=== PATIENT | female | born 1955 | race Caucasian/White ===

== ENCOUNTER 2019-05-11 07:48 | Outpatient (CLI) | payer MEDICARE, OTHER, SELFPAY ==
--- NOTE | 2019-05-11 08:26 | ECHO_ITS ---
Patient Info Name: Beatriz Rosa Age: 64 years : 1955 Gender: Female Ht: 62 in Wt: 170 lbs BSA: 1.87 m2 HR: 67 bpm BP: 129 / 83 mmHg Technical Quality: Good Exam Date: 05/11/2019 8:38 AM Exam Location: [facility] Patient Status: Outpatient Admit Date: 05/11/2019 Staff Ordering Physician: Marcelo Vickers PA-C Machine I Trimmer: Beka Arguello RDCS, RT Attending Provider: Marcelo Vickers PA-C Referring Physician: Alee STOVER; Exam Type: CA echo doppler color flow Study Info Indications R06.02 - Shortness of breath Complete two-dimensional, color flow and Doppler transthoracic echocardiogram is performed. Summary 1. Left ventricular chamber dimension is normal. 2. Left ventricular systolic function is normal, estimated at 60-65%. 3. The left ventricular diastolic function is normal. 4. E/e' 8 is minimally elevated. 5. Global longitudinal strain is normal at -18.6%. 6. Left atrial chamber dimension is mildly enlarged. 7. There is mild aortic valve sclerosis. 8. There is trace mitral valve regurgitation. 9. There is trace pulmonic regurgitation. Left Ventricle E/e' 8 is minimally elevated. Global longitudinal strain is normal at -18.6%. Left ventricular chamber dimension is normal. Left ventricular systolic function is normal, estimated at 60-65%. The left ventricular diastolic function is normal. Right Ventricle Right ventricular chamber dimension is normal. Right ventricular systolic function is normal. Left Atria Left atrial chamber dimension is mildly enlarged. Right Atria Right atrial chamber dimension is normal. Aortic Valve The aortic valve is trileaflet. There is mild aortic valve sclerosis. There is no aortic valve stenosis. There is no aortic valve regurgitation. Pulmonic Valve There is trace pulmonic regurgitation. Mitral Valve There is no mitral valve stenosis. There is trace mitral valve regurgitation. Tricuspid Valve There is no tricuspid valve regurgitation. Pericardium/Pleural There is no pericardial effusion. Inferior Vena Cava Normal inferior vena cava with >50% collapse upon inspiration consistent with normal right atrial pressure, 5 mmHg. Aorta The aortic root size at the sinus of Valsalva is normal. Left Ventricular Outflow Tract Name Value Normal LVOT 2D LVOT Diameter 1.9 cm LVOT Doppler LVOT Peak Gradient 4 mmHg LVOT Mean Gradient 2 mmHg LVOT VTI 22 cm LVOT VTI/AV VTI Ratio 0.8 LVOT Stroke Volume 60 ml LVOT CO 4.0 l/min LVOT CI 2.1 l/min/m2 Pulmonic Valve Name Value Normal PV Doppler PV Peak Gradient 3 mmHg Mitral Valve
== END 2019-05-11 07:49 | disposition home or self-care (01) ==
PROVIDERS: PCP Family Medicine; Visit Provider Physician Assistant
DX: R06.02 Shortness of breath (principal); I08.3 Combined rheumatic disorders of mitral, aortic and tricuspid valves
CPT/HCPCS: 93306

== ENCOUNTER 2019-05-25 13:15 | Outpatient (CLI) | payer MEDICARE, OTHER, SELFPAY ==
--- NOTE | ~2019-05-25 | XR_ITS ---
EXAMINATION: XR chest 2V DATE: 05/25/2019 13:43 INDICATION: Shortness of breath. TECHNIQUE: Frontal and lateral views of the chest were obtained. COMPARISON: Chest single view 09/27/2007 FINDINGS: The chest demonstrates clear lungs without pneumonia, pleural effusion, or pneumothorax. Th e heart size is normal. IMPRESSION: 1. No acute cardiopulmonary disease. Reviewed, dictated and finalized at location A. OWCASE FOLDER
== END 2019-05-25 13:16 | disposition home or self-care (01) ==
LOC: ANHIMG 13:23
PROVIDERS: PCP Family Medicine; Visit Provider Physician Assistant
DX: R06.02 Shortness of breath (principal)
CPT/HCPCS: 71046

== ENCOUNTER 2019-09-12 15:00 | Outpatient (CLI) | payer MEDICARE, OTHER, SELFPAY ==
--- NOTE | ~2019-09-12 | DEXA_ITS ---
Bone Density Report Name: Beatriz Rosa Age: 64 Sex: Female Ethnicity: White Date of : 1955 Indication: postmenopausal; height loss; prior fracture; Referring Provider: Marcelo Vickers Study: Bone densitometry was performed. Exam Date: September 12, 2019 Accession number: [id number] Bone Density: Region BMD T-score Z-score Classification AP Spine (L1, L4) 1.120 0.8 2.5 Normal Femoral Neck (Left) 0.727 -1.1 0.4 Osteopenia Total Hip (Left) 0.869 -0.6 0.7 Normal Total Hip Bilateral Avg 0.873 -0.6 0.7 Normal Femoral Neck (Right) 0.768 -0.7 0.8 Normal Total Hip (Right) 0.875 -0.6 0.7 Normal World Health Organization criteria for BMD impression classify patients as: Normal (T-score at or above -1.0), Osteopenia (T-score between -1.0 and -2.5), or Osteoporosis (T-score at or below -2.5). 10-year Fracture Risk(1): Major Osteoporotic Fracture 13% Hip Fracture 1.0% Reported Risk Factors: [place] (), Neck BMD=0.727, BMI=32.0, previous fracture (1) FRAX(R) Version 3.08. Fracture probability calculated for an untreated patient. Fracture probability may be lower if the patient has received treatment. Previous Exams: Region Exam Age BMD T-score BMD Change BMD Change Date g/cm2 vs Baseline vs Previous AP Spine(L1, L4) 09/12/2019 64 1.120 0.8 -0.030(-2.6%)# 0.020(1.9%) 02/09/2017 61 1.099 0.6 -0.050(-4.4%)# 0.064(6.2%)* 08/22/2014 59 1.035 0.0 -0.115(-10.0%) -0.115(-10.0%) 04/14/2008 53 1.150 1.0 Total Hip(Left) 09/12/2019 64 0.869 -0.6 -0.132(-13.2%) -0.092(-9.6%)* 02/09/2017 61 0.962 0.2 -0.040(-4.0%)# 0.002(0.2%) 08/22/2014 59 0.960 0.1 -0.042(-4.2%)# -0.042(-4.2%)# 04/14/2008 53 1.002 0.5 Total Hip(Right) 09/12/2019 64 0.875 -0.6 -0.169(-16.2%) -0.057(-6.1%)* 02/09/2017 61 0.932 -0.1 -0.112(-10.7%) -0.035(-3.6%)* 08/22/2014 59 0.967 0.2 -0.077(-7.4%)# -0.077(-7.4%)# 04/14/2008 53 1.043 0.8 *Denotes significance at 95% confidence level, LSC for AP Spine = 0.022 g/cm2, LSC for Total Hip = 0.027 g/cm2 Clinical Information Provided by Patient: Has had a low trauma fracture Has used the following medications: Vitamin D Patient maximum height was 62 Menopause Age: 49 Drinks caffeinated beverages Onset of menses at age 11 Number of children 2 Impression: The patient has low bone mass, based on the Left Femoral Neck T-score. The patient has an estim
--- NOTE | ~2019-09-12 | MM_ITS ---
EXAMINATION: MM screening олег BI w noemi HISTORY: Screening mammogram TECHNIQUE: Craniocaudal and mediolateral oblique 3-D tomosynthesis images were obtained and synthetic 2-D images were generated. CAD analysis was submitted and interpreted. COMPARISON: 03/23/2018, 02/09/2017, 08/22/2014 bilateral digital screening mammogram examinations BREAST PARENCHYMAL COMPOSITION: There are scattered areas of fibroglandular density. FINDINGS: There is no evidence of suspicious mass, calcification, or architectural distortion to sugg est malignancy in either breast. There has been no suspicious interval change. IMPRESSION: 1. No mammographic evidence of malignancy. 2. Recommend routine screening mammography in one year. BI-RADS Category 1: Negative Reviewed, dictated and finalized at location A.
== END 2019-09-12 15:01 | disposition home or self-care (01) ==
LOC: ANHIMG 15:07
PROVIDERS: PCP Family Medicine; Visit Provider Physician Assistant
DX: Z78.0 Asymptomatic menopausal state (principal); Z12.31 Encounter for screening mammogram for malignant neoplasm of breast; M85.862 Other specified disorders of bone density and structure, left lower leg
CPT/HCPCS: 77063; 77067; 77080

== ENCOUNTER 2020-02-19 00:13 | Outpatient (CLI) | payer MEDICARE, OTHER, SELFPAY ==
[2020-02-19 20:45] LABS: SARS-CoV-2 RNA PCR Negative
== END 2020-02-19 00:14 | disposition home or self-care (01) ==
LOC: ANHCOVIDDT 00:14
PROVIDERS: PCP Family Medicine; Visit Provider Internal Medicine Gastroenterology
DX: Z01.818 Encounter for other preprocedural examination (principal); Z20.828 Contact with and (suspected) exposure to other viral communicable diseases
CPT/HCPCS: 87635; C9803; U0003

== ENCOUNTER 2020-02-22 01:05 | Day surgery (SDC) | payer MEDICARE, OTHER, SELFPAY ==
[2020-02-14 13:42] VITALS: BMI 33.5
[2020-02-22 15:25] VITALS: BP 117/54; PULSE 83; RESP 16; TEMP 37.2; O2SAT 96
[2020-02-22] MEDS: LACTATED RINGERS 1,000 ML 150 ML IV CONT (15:29)
--- NOTE | 2020-02-22 15:43 | WPDANESEPPF ---
Anes - Initial Pre Proc Eval Procedure: Operation Date: 02/22/20 12:00 Proposed Procedures p Screening Colonoscopy - Noe Wolf MD Date/Time: 02/22/20 15:43 Surgeon: Noe Wolf MD Pre Op Diagnosis: Neoplasm Screening Patient Data Age: 64 Gender: F Height: 5 ft Weight: 76.9 kg Last Vital Signs Temp 98.9 F 02/22/20 15:25 Pulse 83 02/22/20 15:25 Resp 16 02/22/20 15:25 BP 117/54 L 02/22/20 15:25 Pulse Ox 96 02/22/20 15:25 Allergies Allergy/AdvReac Type Severity Reaction Status Date / Time doxycycline Allergy Intermediate Other Verified 02/22/20 15:24 tetracycline AdvReac Intermediate PEELING OF Verified 02/22/20 15:24 SKIN aspirin AdvReac Unknown upset Verified 02/22/20 15:24 stomach Home Medications Medication Instructions Recorded Confirmed Type fluticasone propionate 50 1 spray INTRANASAL DAILY #15.8 ml 01/25/20 02/22/20 Rx mcg/actuation nasal spray,suspension Patient hx anesthesia problems: none Family hx anesthesia problems: none PMFSH Past Medical History Medical History (Updated 04/25/19 @ 11:33 by Gavi Mas CMA) Broken ankle Obstructive sleep apnea Torn ligament Surgical History Surgical History (Updated 04/25/19 @ 11:33 by Gavi Mas CMA) H/O section Hx of breast reduction, elective Family History Family History Father Diabetes mellitus, Onset Age: 47 Hypertension, Onset Age: 47 Grandparent Diabetes mellitus Mother Diabetes mellitus Hypertension Sibling Hypertension Social History Social History (Updated 04/25/19 @ 11:33 by Gavi Mas CMA) Years smoked: 3 Smoking status: Light tobacco smoker Tobacco type: cigarettes Alcohol intake: current Drinks per week: 1 Substance use: never Substance use type: does not use Spiritual care concerns: No Anes - Eval Final PreProcedure Day of Procedure 02/22/20 15:43 Patient weight: overweight Heart: regular rate and rhythm Lungs: clear to auscultation Airway: Mallampati scale class II Neurological: alert and oriented Last oral intake: >/= 8 hours ASA classification: II Emergent: no Anesthetic plan: proceed Anesthesia type and monitoring: general GIVS and standard monitoring Informed Consent: The patient's anesthetic plan and its attendant risks and benefits were discussed with the patient/family/POA. Questions were solicited and answers provided to the satisfaction of the patient/family/POA.
--- NOTE | 2020-02-22 16:36 | PM.HPGS ---
History of Present Illness History of Present Illness Consent: Risks, benefits, and alternatives have been discussed and questions answered. Patient agrees to proceed with procedure. Chief complaint: Neoplasm Screening Narrative: Beatriz Rosa is a 64 year old female here for screening colonoscopy, last one 10 years ago. Review of Systems Constitutional: Constitutional: Denies headache(s) and Denies weakness Eyes: Eyes: Denies blurry vision ENT: Reports Normal hearing present, Denies headache(s) and Denies neck pain Cardiovascular: Cardiovascular: Denies chest pain and Denies dyspnea Respiratory: Respiratory: Denies dyspnea Gastrointestinal: Gastrointestinal: Reports no additional gastrointestinal complaints Genitourinary: Genitourinary: Denies dysuria Musculoskeletal: Musculoskeletal: Denies neck pain Integumentary/Breasts: Skin/Breast: Denies dry skin Neurologic: Reports Normal hearing present, Denies headache(s) and Denies weakness Psychiatric: Psychiatric: Denies anxiety Endocrine: Endocrine: Denies change in body appearance Hematologic/Lymphatic: Hematologic/Lymphatic: Denies easy bleeding Allergic/Immunologic: Allergic/Immunologic: Denies urticaria PMFSH Past Medical History Medical History (Updated 02/22/20 @ 16:36 by Noe Wolf MD) Broken ankle Colon cancer screening Obstructive sleep apnea Torn ligament Surgical History Surgical History (Updated 04/25/19 @ 11:33 by Gavi Mas [facility]) H/O section Hx of breast reduction, elective Family History Family History Father Diabetes mellitus, Onset Age: 47 Hypertension, Onset Age: 47 Grandparent Diabetes mellitus Mother Diabetes mellitus Hypertension Sibling Hypertension Social History Social History (Updated 04/25/19 @ 11:33 by Gavi Mas [facility]) Years smoked: 3 Smoking status: Light tobacco smoker Tobacco type: cigarettes Alcohol intake: current Drinks per week: 1 Substance use: never Substance use type: does not use Spiritual care concerns: No Meds Home Medications and Allergies Home Medications Medication Instructions Recorded Confirmed Type fluticasone propionate 50 1 spray INTRANASAL DAILY #15.8 ml 01/25/20 02/22/20 Rx mcg/actuation nasal spray,suspension Allergies Allergy/AdvReac Type Severity Reaction Status Date / Time doxycycline Allergy Intermediate Other Verified 02/22/20 15:24 tetracycline AdvReac Intermediate PEELING OF Verified 02/22/20 15:24 SKIN aspirin AdvReac Unknown upset Verified 02/22/20 15:24 stomach Vital Signs Vital Signs - 24 hr 02/22/20 15:25 Temperature 98.9 F Pulse Rate 83 Respiratory Rate 16 Blood Pressure 117/54 L Pulse Oximetry 96 Exam Const: General: comfortable and no acute distress HENMT: General nose exam: Normal nares present Eyes: General: appearance normal, both eyes and all related structures Neck: Neck: no JVD Resp: Auscultation: clear to auscultation bilaterally Cardio: Rate: regular rate Rhythm: regular rhythm GI: Inspection: non-distended GI Palp: Yes Soft to palpation Skin: General skin exam: normal color Neuro: General: gait normal Speech: normal speech Extrem: General: normal to inspection Psych: Mental Status: mental status grossly normal Assessment and Plan Assessment and plan (1) Colon cancer screening: Code(s): Z12.11 - Encounter for screening for malignant neoplasm of colon Status: Acute Assessment and Plan: will proceed with colonoscopy
[2020-02-22 16:59] VITALS: BP 92/50; PULSE 81; RESP 23; O2SAT 98
[2020-02-22 17:09] VITALS: BP 94/65; PULSE 80; RESP 20; O2SAT 97
[2020-02-22 17:19] VITALS: BP 99/71; PULSE 68; RESP 19; O2SAT 100
== END 2020-02-22 17:30 | disposition home or self-care (01) ==
PROVIDERS: PCP Family Medicine; Visit Provider Internal Medicine Gastroenterology
PROC: 0DJD8ZZ Inspection of Lower Intestinal Tract, Via Natural or Artificial Opening Endoscopic (ICD-10-PCS; CPT 45378; principal; 2020-02-22 12:00)
DX: Z12.11 Encounter for screening for malignant neoplasm of colon (principal); K63.5 Polyp of colon; K57.30 Diverticulosis of large intestine without perforation or abscess without bleeding; K64.8 Other hemorrhoids; G47.33 Obstructive sleep apnea (adult) (pediatric); F17.210 Nicotine dependence, cigarettes, uncomplicated
CPT/HCPCS: 45385; 88305; J2704; J7120

== ENCOUNTER 2021-01-21 12:14 | Emergency (ER) | payer MEDICARE, SELFPAY ==
--- NOTE | 2021-01-21 12:19 | ED.URI ---
HPI - URI/Sore Throat General Chief Complaint: Upper Respiratory Infection Stated Complaint: COLD SYMPTOMS Time Seen by Provider: 01/21/21 12:19 Source: patient and RN notes reviewed History of Present Illness HPI Narrative: Patient is 65-year-old female who presents the urgent care with complaints of nasal congestion, rhinorrhea, sinus pain/congestion and sore throat. Patient states that it started approximately 1 week ago after she came back from [place], visiting her grandkids. Patient states that she has had to negative Covid test since then with the last one being yesterday. Patient states that her grandchildren were not diagnosed with any bacterial infection. States that she has been taking DayQuil, NyQuil and ibuprofen for her symptoms. No other acute complaints. Patient has had her Covid vaccine but has not had a flu vaccination. No acute distress noted. Patient under the plan of care. Some parts of this dictation were generated by voice recognition software and may contain typographical and/or grammatical inaccuracies. Related Data Allergies Allergy/AdvReac Type Severity Reaction Status Date / Time doxycycline Allergy Intermediate Other Verified 05/16/20 13:45 tetracycline AdvReac Intermediate PEELING OF Verified 05/16/20 13:45 SKIN aspirin AdvReac Unknown upset Verified 05/16/20 13:45 stomach Review of Systems Review of Systems: CONSTITUTIONAL: Reports of low-grade fever with chills and sweats EYES: Denies visual changes, redness, or discharge. ENT: Reports rhinorrhea, sinus congestion, nasal congestion and sore throat CARDIOVASCULAR: Denies chest pain, palpitations, or edema. RESPIRATORY: Denies cough or dyspnea. GASTROINTESTINAL: Denies abdominal pain, nausea, vomiting, or diarrhea. GENITOURINARY: Denies dysuria or hematuria. SKIN: Denies rash or itching. MUSCULOSKELETAL: Denies back pain, joint pain, or myalgia. NEUROLOGIC: Denies headache, numbness, or weakness. All other systems reviewed are negative, except as documented in HPI. [facility] Past Medical History Medical History Broken ankle Colon cancer screening Obstructive sleep apnea Torn ligament Surgical History Surgical History H/O section Hx of breast reduction, elective Family History Family History Father Diabetes mellitus, Onset Age: 47 Hypertension, Onset Age: 47 Grandparent Diabetes mellitus Mother Diabetes mellitus Hypertension Sibling Hypertension Social History Social History Years smoked: 3 Smoking status: Light tobacco smoker Tobacco type: cigarettes Alcohol intake: current Drinks per week: 1 Alcohol use details: beer, bourbon Substance use: never Substance use type: does not use Spiritual care concerns: No Comments At the time of my signature, I reviewed and agree with the nursing past medical, surgical, social, and family history. There is no relevant family history pertinent to the patient complaint. Exam Narrative: GENERAL: This is a well-nourished, well-developed patient. Appears slightly fatigued HEAD: normocephalic, atraumatic. EYES: PERRL. Sclera clear/white. Vision is grossly intact. Mild bilateral injected conjunctiva with clear drainage EARS: External ears normal, auditory canals clear and without drainage, TMs normal without perforation. Hearing grossly intact. NOSE: External nose normal with no obvious nasal discharge, nares with redness, clear rhinorrhea. THROAT: Mucous membranes moist, posterior pharynx clear. Moderate postnasal drainage NECK: Neck supple CARDIOVASCULAR: Regular rate and rhythm without murmurs, gallops, or rubs. RESPIRATORY: Clear to auscultation. Breath sounds equal bilaterally. No wheezes, rales, or rhonchi. SKIN:
[2021-01-21 12:20] VITALS: BP 126/69; PULSE 88; RESP 16; TEMP 37; O2SAT 98
== END 2021-01-21 12:48 | disposition home or self-care (01) ==
PROVIDERS: Emergency Provider Nurse Practitioner Family; PCP Family Medicine
DX: J06.9 Acute upper respiratory infection, unspecified (principal); G47.33 Obstructive sleep apnea (adult) (pediatric); F17.210 Nicotine dependence, cigarettes, uncomplicated
CPT/HCPCS: 87804; 99213; G0463

== ENCOUNTER 2021-01-23 13:37 | Emergency (ER) | payer MEDICARE, SELFPAY ==
--- NOTE | ~2021-01-23 | XR_ITS ---
EXAMINATION: XR chest 2V DATE: 01/23/2021 13:55 INDICATION: Cough and congestion TECHNIQUE: PA and lateral views of the chest are obtained. COMPARISON: 05/25/2019 FINDINGS: The lungs are free of acute opacities. There is no pleural effusion or pneumothorax. The ca rdiomediastinal silhouette is normal. There is moderate thoracic spondylosis. IMPRESSION: 1. No acute cardiopulmonary abnormality. Reviewed, dictated and finalized at location B.
[2021-01-23 13:42] VITALS: BP 134/74; PULSE 80; RESP 12; TEMP 37.2; O2SAT 99
--- NOTE | 2021-01-23 13:42 | ED.URI ---
HPI - URI/Sore Throat General Chief Complaint: Eye Problems Stated Complaint: eye irritation/chest congestion Time Seen by Provider: 01/23/21 13:43 Source: patient, RN notes reviewed and old records reviewed Mode of arrival: ambulatory Limitations: no limitations History of Present Illness HPI Narrative: 65-year-old female presents to the [facility] with continued cough after being evaluated 2 days ago. Patient states her cough started on Wednesday, 5 days ago. States that she wants to be tested for PCR for Covid. this morning states that she has had eye redness drainage from both eyes, worse on the left than the right. Patient denies any shortness of breath or chest pain. States her cough is no better. Is concerned for pneumonia. States that she is taken 2 doses of her prednisone. Patient states that this morning redness of the eye started, white drainage noted, constantly tearing. Denies pain but states it is hard to see out of the left eye because amount of tearing. Patient denies wearing contact lenses, no trauma to her eyes. Related Data Allergies Allergy/AdvReac Type Severity Reaction Status Date / Time doxycycline Allergy Intermediate Other Verified 01/23/21 13:43 tetracycline AdvReac Intermediate PEELING OF Verified 01/23/21 13:43 SKIN aspirin AdvReac Unknown upset Verified 05/16/20 13:45 stomach Review of Systems Review of Systems: All systems reviewed & are unremarkable except as noted in HPI and below Constitutional: Constitutional: Reports no additional constitutional complaints, Denies chills and Denies fever(s) Eyes: Eyes: Reports as per HPI, Denies change in vision, Reports eye discharge, Reports irritation, Reports itchy eyes, Denies loss of vision, Denies other visual disturbances, Denies photophobia and Denies spots in vision ENT: Reports system reviewed and no additional complaints, except as documented Cardiovascular: Cardiovascular: Reports no additional cardiovascular complaints Respiratory: Respiratory: Reports as per HPI, Reports cough, Denies dyspnea and Denies wheezing Gastrointestinal: Gastrointestinal: Reports no additional gastrointestinal complaints Musculoskeletal: Musculoskeletal: Reports no additional musculoskeletal complaints Integumentary/Breasts: Skin/Breast: Reports system reviewed and no additional complaints, except as docu Neurologic: Reports system reviewed and no additional complaints, except as documented Psychiatric: Psychiatric: Reports no additional psychiatric complaints Allergic/Immunologic: Allergic/Immunologic: Reports no additional allergic/immunologic complaints PMFSH Past Medical History Medical History Broken ankle Colon cancer screening Obstructive sleep apnea Torn ligament Surgical History Surgical History H/O section Hx of breast reduction, elective Family History Family History Father Diabetes mellitus, Onset Age: 47 Hypertension, Onset Age: 47 Grandparent Diabetes mellitus Mother Diabetes mellitus Hypertension Sibling Hypertension Social History Social History Years smoked: 3 Smoking status: Light tobacco smoker Tobacco type: cigarettes Alcohol intake: current Drinks per week: 1 Alcohol use details: beer, bourbon Substance use: never Substance use type: does not use Spiritual care concerns: No Comments At the time of my signature, I reviewed and agree with the nursing past medical, surgical, social, and family history. There is no relevant family history pertinent to the patient complaint. Exam Const: General: no acute distress, alert and ill appearing acutely Nutritional Appearance: well nourished and obese Orientation/consciousness: patient oriented x3 Limitations: no limitations
[2021-01-24 17:24] LABS: SARS-CoV-2 RNA PCR Negative
== END 2021-01-23 14:21 | disposition home or self-care (01) ==
PROVIDERS: Emergency Provider Nurse Practitioner; PCP Family Medicine
DX: H10.33 Unspecified acute conjunctivitis, bilateral (principal); J20.9 Acute bronchitis, unspecified; Z20.822 Contact with and (suspected) exposure to COVID-19; F17.210 Nicotine dependence, cigarettes, uncomplicated; G47.33 Obstructive sleep apnea (adult) (pediatric)
CPT/HCPCS: 71046; 99213; C9803; G0463; U0003; U0005

== ENCOUNTER 2021-01-23 19:13 | Emergency (ER) | payer MEDICARE, SELFPAY ==
[2021-01-23 19:17] VITALS: BP 148/78; PULSE 91; RESP 20; TEMP 36.7; O2SAT 98
[2021-01-23 19:30] VITALS: PULSE 95; RESP 18; TEMP 36.7; O2SAT 97
--- NOTE | 2021-01-23 20:05 | ED.GENADULT ---
HPI - General Adult General Chief complaint: Upper Respiratory Infection Stated complaint: URI symptoms Time Seen by Provider: 01/23/21 19:28 History of Present Illness HPI narrative: Patient is a 65-year-old female who presents ER with concerns for edema and redness to her eyelids bilaterally. Patient recently returned from [place] where she was around some sick kids. She then developed the same illness with sinus congestion. She has swab herself for Covid and it was negative. She reports her eyes became puffy and swollen and started having some discharge. She went to an urgent care and was diagnosed with pinkeye and given a prescription of prednisone as well as Cipro eyedrops. She is concerned that she may have had an allergic reaction to some shrimp that she ate last night and today because her upper eyelids are becoming a bit more swollen. No improvement with Claritin. No change in vision. Related Data Allergies Allergy/AdvReac Type Severity Reaction Status Date / Time doxycycline Allergy Intermediate Other Verified 01/23/21 20:10 tetracycline AdvReac Intermediate PEELING OF Verified 01/23/21 20:10 SKIN aspirin AdvReac Unknown upset Verified 01/23/21 20:10 stomach Review of Systems Review of Systems: All systems reviewed & are unremarkable except as noted in HPI and below Constitutional: Constitutional: Denies chills and Denies fever(s) Eyes: Comments: eye discharge ENT: Reports nasal congestion and Denies sore throat Respiratory: Respiratory: Denies cough, Denies dyspnea and Denies wheezing PMFSH Past Medical History Medical History Broken ankle Colon cancer screening Obstructive sleep apnea Torn ligament Surgical History Surgical History H/O section Hx of breast reduction, elective Family History Family History Father Diabetes mellitus, Onset Age: 47 Hypertension, Onset Age: 47 Grandparent Diabetes mellitus Mother Diabetes mellitus Hypertension Sibling Hypertension Social History Social History Years smoked: 3 Smoking status: Light tobacco smoker Tobacco type: cigarettes Alcohol intake: current Drinks per week: 1 Alcohol use details: beer, bourbon Substance use: never Substance use type: does not use Spiritual care concerns: No Exam Narrative: GENERAL: Well-appearing, well-nourished, and in no acute distress. HEAD: Normocephalic, atraumatic. EYES: PERRL and EOMI. conjunctivitis bilaterally with edema of the upper and lower lids with scleral and conjunctival injection. There is a yellowish discharge along the lids of both eyes. ENT: Normal-appearing nose and mouth. No posterior oropharynx abnormality. SKIN: Warm, dry, no rash. NEURO: No focal deficits. Alert and oriented x3. PSYCH: Normal mood and affect. Course Course Emergency Course: Discussed diagnosis patient verbalized understanding. Given reassurance. Will give Benadryl here. Discharge home. Vital Signs Vital signs: Vital Signs Temperature 98.1 F 01/23/21 19:17 Pulse Rate 91 01/23/21 19:17 Respiratory Rate 20 01/23/21 19:17 Blood Pressure 148/78 H 01/23/21 19:17 Pulse Oximetry 98 01/23/21 19:17 Temperature 98.1 F 01/23/21 19:30 Pulse Rate 95 01/23/21 19:30 Respiratory Rate 18 01/23/21 19:30 Blood Pressure 148/78 H 01/23/21 19:17 Pulse Oximetry 97 01/23/21 19:30 Medical Decision Making Vital Signs Vital Signs: Vital Signs Temperature 98.1 F 01/23/21 19:17 Pulse Rate 91 01/23/21 19:17 Respiratory Rate 20 01/23/21 19:17 Blood Pressure 148/78 H 01/23/21 19:17 Pulse Oximetry 98 01/23/21 19:17 Temperature 98.1 F 01/23/21 19:30 Pulse Rate 95 01/23/21 19:30 Respiratory Rate 18 01/23/21 19:30 Blood Pressure 148/78 H
[2021-01-23] MEDS: diphenhydrAMINE HCl CAP 25 MG CAPSULE PO (20:10)
[2021-01-23 20:32] VITALS: BP 122/69; PULSE 75; RESP 16; O2SAT 97
== END 2021-01-23 20:33 | disposition home or self-care (01) ==
PROVIDERS: Emergency Provider Emergency Medicine; PCP Family Medicine
DX: H10.9 Unspecified conjunctivitis (principal); J06.9 Acute upper respiratory infection, unspecified; G47.33 Obstructive sleep apnea (adult) (pediatric); F17.210 Nicotine dependence, cigarettes, uncomplicated
CPT/HCPCS: 71046; 99282; A9270; C9803; U0003; U0005

== ENCOUNTER → 2021-05-22 09:18 | Outpatient (CLI) | payer MEDICARE, SELFPAY ==
--- NOTE | ~2021-05-22 | XR_ITS ---
XR foot RT 2V DATE: 05/22/2021 09:35 INDICATION: Right foot pain, localized to distal fifth metatarsal and fifth toe TECHNIQUE: AP and lateral views of right foot COMPARISON: None FINDINGS: There is a linear oblique fracture through the head of the proximal phalanx of the fifth to e with minimal lateral displacement, no significant angulation. Mild hallux valgus and bunion deformity. There is mild osteoarthritis at the first metatarsophalangea l joint. There is mild plantar calcaneal enthesopathy. No fracture or dislocation, periosteal reaction or bone destruction is detected. IMPRESSION: Fracture of head of proximal phalanx of fifth toe Reviewed, dictated and finalized at location A. 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
== END ==
PROVIDERS: PCP Family Medicine; Visit Provider Physician Assistant
DX: M79.671 Pain in right foot (principal); S92.511A Displaced fracture of proximal phalanx of right lesser toe(s), initial encounter for closed fracture
CPT/HCPCS: 73620

== ENCOUNTER 2022-04-07 09:00 | Outpatient (NON) | payer MEDICARE, SELFPAY | END 2022-04-07 09:01 | disposition home or self-care (01) | PROVIDERS: PCP Family Medicine; Visit Provider Nurse Practitioner | DX: C44.319 Basal cell carcinoma of skin of other parts of face (principal) | CPT/HCPCS: 88305 ==

== ENCOUNTER 2022-05-05 09:20 | Outpatient (CLI) | payer MEDICARE, SELFPAY ==
[2022-05-05 15:34] LABS: Basophils Percent Auto 0.7 % (0.2-1.2); Eosinophils Absolute Auto 0.4 K/mm3 (0-0.3); Eosinophils Percent Auto 6.2 % (0-4.4); Hematocrit 42.1 % (37.0-47.0); Hemoglobin 13.5 g/dL (12.0-15.0); Immature Granulocyte Absolute 0.02 K/mm3 (0.00-0.031); Immature Granulocyte Percent A 0.3 % (0-0.5); Lymphocytes Percent Auto 32.8 % (18.3-44.2); Mean Corpuscular HGB Conc 32.1 g/dl (32-36); Mean Corpuscular Hemoglobin 29.5 pg (26-34); Mean Corpuscular Volume 92.1 fl (80-100); Mean Platelet Volume 10.4 fl (7.4-10.4); Monocytes Absolute Auto 0.4 K/mm3 (0.1-0.6); Monocytes Percent Auto 6.6 % (2.6-8.5); Neutrophils Absolute Auto 3.3 K/mm3 (1.3-6.7); Neutrophils Percent Auto 53.4 % (45.5-73.1); Platelet Count Result 268 k/mm3 (150-375); Red Blood Count 4.57 M/mm3 (4.2-5.4); Red Cell Distribution Width 13.3 % (11.5-14.5); White Blood Count 6.1 K/mm3 (4.5-10.0)
[2022-05-05 15:53] LABS: Alanine Aminotransferase 22 U/L (6-35); Albumin Level 4.2 g/dL (3.5-5.1); Alkaline Phosphatase 86 U/L (38-126); Anion Gap 2 mmol/L (8-16); Aspartate Amino Transferase 27 U/L (14-36); Bilirubin,Total 0.4 mg/dL (0.2-1.3); Blood Urea Nitrogen 13 mg/dL (7-17); Calcium 8.9 mg/dL (8.4-10.2); Carbon Dioxide 31 mmol/L (22-30); Chloride 103 mmol/L (98-107); Cholesterol 233 mg/dL (0-200); Estimated Glomerular Filt Rate > 60; Glucose 106 mg/dL (65-110); HDL Direct 47 mg/dL; Potassium 4.3 mmol/L (3.4-5.0); Sodium 136 mmol/L (137-145); Triglycerides 169 mg/dL (<150)
[2022-05-05 16:05] LABS: LDL Cholesterol Direct 131 mg/dL
[2022-05-05 16:53] LABS: Vitamin D 25 Hydroxy 30.9 ng/mL
[2022-05-05 17:28] LABS: Hepatitis C Virus Antibody Negative (Negative)
[2022-05-05 19:38] LABS: Hemoglobin A1C 6.2 % (<5.7)
== END 2022-05-05 09:21 | disposition home or self-care (01) ==
LOC: ANHGOSHLAB 09:23
PROVIDERS: PCP Family Medicine; Visit Provider Physician Assistant
DX: Z11.59 Encounter for screening for other viral diseases (principal); M85.80 Other specified disorders of bone density and structure, unspecified site; G47.33 Obstructive sleep apnea (adult) (pediatric); E66.9 Obesity, unspecified; R73.03 Prediabetes
CPT/HCPCS: 36415; 80053; 80061; 82306; 83036; 84443; 85025; 86803

== ENCOUNTER 2022-06-15 13:29 | Outpatient (NON) | payer MEDICARE, SELFPAY | END 2022-06-15 13:30 | disposition home or self-care (01) | LOC: ANHLAB 13:30 | PROVIDERS: PCP Family Medicine; Visit Provider Nurse Practitioner | DX: C44.319 Basal cell carcinoma of skin of other parts of face (principal) | CPT/HCPCS: 88305; 88331 ==

== ENCOUNTER 2022-07-04 08:25 | Outpatient (CLI) | payer MEDICARE, SELFPAY ==
--- NOTE | ~2022-07-04 | DEXA_ITS ---
Bone Density Report Name: FREIDA SINCLAIR Age: 67 Sex: Female Ethnicity: White Date of : 1955 Indication: postmenopausal; screening for osteoporosis; parental hip fracture; cancer; Referring Provider: LEV GARZA Study: Bone densitometry was performed. Exam Date: July 04, 2022 Accession number: [id number] Bone Density: Region BMD T-score Z-score Classification AP Spine(L1-L4) 1.247 1.8 3.8 Normal Femoral Neck (Left) 0.746 -0.9 0.8 Normal Total Hip (Left) 0.870 -0.6 0.8 Normal Femoral Neck (Right) 0.715 -1.2 0.5 Osteopenia Total Hip (Right) 0.931 -0.1 1.3 Normal Total Hip Mean 0.901 -0.4 1.1 Normal World Health Organization criteria for BMD impression classify patients as: Normal (T-score at or above -1.0), Osteopenia (T-score between -1.0 and -2.5), or Osteoporosis (T-score at or below -2.5). Previous Exams: Region Exam Age BMD T-score BMD Change BMD Change Date g/cm2 vs Baseline vs Previous Total Hip(Left) 07/04/2022 67 0.870 -0.6 -0.089 (-9.3%) 0.001 (0.1%) 09/12/2019 64 0.869 -0.6 -0.090 (-9.4%) -0.092 (-9.6%) 02/09/2017 61 0.962 0.2 0.002 (0.2%) 0.002 (0.2%) 08/22/2014 59 0.960 0.1 Total Hip(Right) 07/04/2022 67 0.931 -0.1 -0.035 (-3.6%) 0.057 (6.5%)* 09/12/2019 64 0.875 -0.6 -0.092 (-9.5%) -0.057 (-6.1%) 02/09/2017 61 0.932 -0.1 -0.035 (-3.6%) -0.035 (-3.6%) 08/22/2014 59 0.967 0.2 *Denotes significance at 95% confidence level, LSC for Total Hip = 0.027 g/cm2 Clinical Information Provided by Patient: Parent has had a hip fracture Has used the following medications: Vitamin D, Calcium Has the following medical conditions: Cancer Patient maximum height was 61.75 Menopause Age: 49 Drinks caffeinated beverages Onset of menses at age 11 Number of children 2 Impression: The patient has low bone mass, based on the Right Femoral Neck T-score. The patient has risk factors, including: parental hip fracture. No significant bone loss was observed. Discussion: BONE DENSITY IS LOW AT ONE OR MORE SKELETAL SITES. This patient's lowest T-score is low at one or more skeletal sites. It meets the World Health Organization's (WHO) criteria for ?low bone mass? (T-score between -1.0 and -2.5). The patient's 10-year risk of fracture as calculated by FRAX is less than the threshold where pharmacological therapy is recommended by the National Osteoporosis Foundation (NOF). However, all treatment decisions require clinical judgment and consideration of individual patient factors, including patient preferences, comorbidities, previous drug use, risk factors not
--- NOTE | ~2022-07-04 | MM_ITS ---
EXAMINATION: MM screening [facility] BI w noemi HISTORY: Screening mammogram TECHNIQUE: Craniocaudal and mediolateral oblique 3-D tomosynthesis images were obtained and synthetic 2-D images were generated. CAD analysis was submitted and interpreted. COMPARISON: 09/12/2019, 03/23/2018, 02/09/2017 BREAST PARENCHYMAL COMPOSITION: There are scattered areas of fibroglandular density. FINDINGS: No suspicious mass, calcification, or architectural distortion are identified in either patricia ast to suggest malignancy. There has been no suspicious interval change. IMPRESSION: 1. No mammographic evidence of malignancy. 2. Recommend routine screening mammography in one year. BI-RADS Category 1: Negative Reviewed, dictated and finalized at location A.
== END 2022-07-04 08:26 | disposition home or self-care (01) ==
PROVIDERS: PCP Family Medicine; Visit Provider Physician Assistant
DX: Z12.31 Encounter for screening mammogram for malignant neoplasm of breast (principal); Z78.0 Asymptomatic menopausal state; M85.851 Other specified disorders of bone density and structure, right thigh
CPT/HCPCS: 77063; 77067; 77080

== ENCOUNTER 2022-12-17 18:56 | Emergency (ER) | payer MEDICARE, SELFPAY ==
--- NOTE | ~2022-12-17 | XR_ITS ---
EXAMINATION: XR hip RT 2V w AP pelvis INDICATION: Right hip pain TECHNIQUE: AP view the pelvis and two views of the right hip are obtained. COMPARISON: None available FINDINGS: Bone alignment is normal. There is no fracture. There are phleboliths of the pelvis. There is severe lumbar spondylosis. IMPRESSION: 1. No acute osseous abnormality. Reviewed, dictated and finalized at location F.
--- NOTE | ~2022-12-17 | CT_ITS ---
EXAMINATION: CT facial & cervical spine wo DATE: 12/17/2022 21:05 INDICATION: Neck and facial pain TECHNIQUE: Computed tomography (CT) of the maxillofacial region and cervical spine was performed with out intravenous contrast. The dose-length product (DLP) was 472.39 mGy-cm. Automated exposure control and iterative reconstruction technique were employed. COMPARISON: None FINDINGS: MAXILLOFACIAL CT: No facial fracture is identified. The paranasal sinuses are clear. The globes and orbits are unremark able. CERVICAL SPINE CT: Bone alignment is normal. There is no fracture. There is severe loss of intervertebral disc space hei ght at C3-4, C4-5, C5-6, and C6-7. The vertebral body heights are normal. The odontoid process is int act. Small degenerative osteophytes project from the anterior endplates of multiple vertebral bodies. There is multilevel severe uncovertebral joint osteoarthritis. There is moderate multilevel facet lizbeth int osteoarthritis. IMPRESSION: 1. No facial fracture. 2. Severe cervical spondylosis without acute findings. Reviewed, dictated and finalized at location F.
--- NOTE | ~2022-12-17 | CT_ITS ---
EXAMINATION: CT brain wo con INDICATION: Head injury COMPARISON: None TECHNIQUE: Standard unenhanced head CT. The dose-length product (DLP) was 681.00 mGy-cm. The mA was a djusted according to patient size. Iterative reconstruction technique was employed. FINDINGS: No intracranial hemorrhage, acute infarction, or abnormal mass lesion. The ventricles are n ormal. No abnormal mass effect or midline shift. The capellan-white matter differentiation is normal. The basal cisterns are patent. The orbits are normal. The paranasal sinuses, mastoids and calvarium are normal. IMPRESSION: 1. No acute intracranial abnormality. Reviewed, dictated and finalized at location F.
--- NOTE | ~2022-12-17 | XR_ITS ---
EXAMINATION: XR shoulder RT min 2V INDICATION: Right shoulder pain TECHNIQUE: Four views of the right shoulder are submitted. COMPARISON: None FINDINGS: Normal alignment. No fracture. There is mild osteoarthritis of the glenohumeral and acromio clavicular joints. Soft tissues are unremarkable. IMPRESSION: 1. No acute osseous abnormality. Reviewed, dictated and finalized at location F.
--- NOTE | ~2022-12-17 | CT_ITS ---
EXAMINATION: CT chest abdomen pelvis w con DATE: 12/17/2022 21:10 INDICATION: Pain after fall from horse TECHNIQUE: Transaxial computed tomographic images of the chest, abdomen, and pelvis were obtained aft er the administration of 100 cc of Omnipaque 350 intravenous contrast. The dose-length product (DLP) was 1451.17 mGy-cm. Automated exposure control and iterative reconstruction technique were employed. COMPARISON: None FINDINGS: CHEST CT: There is mild dependent atelectasis. No pleural effusion or pneumothorax. No pathologically enlarged thoracic lymph nodes are identified. The heart size is normal. 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 There is severe thoracic spondylosis. The re are old left rib fractures. ABDOMEN/PELVIS CT: The liver, spleen, pancreas, gallbladder, and right adrenal gland are normal. There is mild nodular t hickening of the left adrenal gland right kidney is unremarkable. There is a 4 mm cyst of the left ki dney. No pathologically enlarged abdominal or pelvic lymph nodes are identified. No free intraperiton eal gas or evidence of bowel obstruction. Colonic diverticulosis is present without evidence of diver ticulitis. There is a calcified fibroid of the uterus. A moderate volume of colonic stool is present. There is severe lumbar spondylosis. There is an umbilical hernia containing fat. IMPRESSION: 1. No acute findings of the chest, abdomen, or pelvis. Reviewed, dictated and finalized at location F.
[2022-12-17 19:20] VITALS: BP 143/64; PULSE 91; RESP 18; TEMP 37; O2SAT 99
[2022-12-17 20:16] VITALS: BP 125/65; PULSE 73; RESP 18; O2SAT 96
[2022-12-17 20:37] LABS: Basophils Percent Auto 0.3 % (0.2-1.2); Eosinophils Absolute Auto 0.3 K/mm3 (0-0.3); Eosinophils Percent Auto 2.5 % (0-4.4); Hematocrit 41.6 % (37.0-47.0); Hemoglobin 13.3 g/dL (12.0-15.0); Immature Granulocyte Absolute 0.06 K/mm3 (0.00-0.031); Immature Granulocyte Percent A 0.5 % (0-0.5); Lymphocytes Absolute Auto 2.09 K/mm3 (0.9-3.2); Lymphocytes Percent Auto 16.2 % (18.3-44.2); Mean Corpuscular Hemoglobin 29.5 pg (26-34); Mean Corpuscular Volume 92.2 fl (80-100); Mean Platelet Volume 10.4 fl (7.4-10.4); Monocytes Absolute Auto 0.7 K/mm3 (0.1-0.6); Monocytes Percent Auto 5.1 % (2.6-8.5); Neutrophils Absolute Auto 9.7 K/mm3 (1.3-6.7); Neutrophils Percent Auto 75.4 % (45.5-73.1); Platelet Count Result 241 k/mm3 (150-375); Red Blood Count 4.51 M/mm3 (4.2-5.4); Red Cell Distribution Width 12.9 % (11.5-14.5); White Blood Count 12.9 K/mm3 (4.5-10.0)
[2022-12-17 20:46] LABS: Alanine Aminotransferase 28 U/L (6-35); Albumin Level 4.1 g/dL (3.5-5.1); Alkaline Phosphatase 96 U/L (38-126); Anion Gap 4 mmol/L (8-16); Aspartate Amino Transferase 38 U/L (14-36); Bilirubin,Total 0.4 mg/dL (0.2-1.3); Blood Urea Nitrogen 21 mg/dL (7-17); Calcium 9.2 mg/dL (8.4-10.2); Carbon Dioxide 30 mmol/L (22-30); Chloride 103 mmol/L (98-107); Estimated CRCL calculation 55 ml/min; Estimated Glomerular Filt Rate > 60; Glucose 156 mg/dL (65-110); Potassium 3.7 mmol/L (3.4-5.0); Sodium 137 mmol/L (137-145)
--- NOTE | 2022-12-17 21:29 | ED.GENADULT ---
HPI - General Adult General Chief complaint: Trauma Stated complaint: thrown from horse Time Seen by Provider: 12/17/22 19:49 History of Present Illness HPI narrative: Patient is a 67-year-old female who presents emergency department with chief complaint of fall from horse. Patient reports that she was riding a horse she was wearing a helmet and was bucked off the horse the patient reports she struck her face reports she struck her head she reports she may have had a loss of consciousness the patient denies being on blood thinners reports that she has pain in her right shoulder and her right hip as well. Related Data Allergies Allergy/AdvReac Type Severity Reaction Status Date / Time doxycycline Allergy Intermediate Other Verified 12/17/22 20:21 tetracycline AdvReac Intermediate PEELING OF Verified 12/17/22 20:21 SKIN aspirin AdvReac Unknown upset Verified 12/17/22 20:21 stomach Review of Systems Review of Systems: A 10 system review of systems was completed on the patient and is negative except for what is stated in the HPI. Nursing and ancillary documentation was reviewed. PMFSH Past Medical History Medical History Broken ankle Former smoker three years Obstructive sleep apnea Torn ligament Surgical History Surgical History H/O section Hx of breast reduction, elective Family History Family History Father Diabetes mellitus, Onset Age: 47 Hypertension, Onset Age: 47 Grandparent Diabetes mellitus Mother Diabetes mellitus Hypertension Sibling Hypertension Social History Social History Years smoked: 3 Smoking status: Former smoker Tobacco type: cigarettes Alcohol intake: current Drinks per week: 1 Alcohol use details: beer, bourbon Substance use: never Substance use type: does not use Spiritual care concerns: No Exam Narrative: GENERAL: Well-appearing, well-nourished, and in no acute distress. HEAD: Normocephalic, there is bruising present to the nose. EYES: PERRLA and EOMI. ENT: Nares clear, no rhinorrhea or epistaxis. Mucous membranes moist. No septal hematoma, no hemotympanum NECK: Supple. CHEST: Clear to auscultation. No respiratory distress. HEART: Regular rate and rhythm. No murmur heard. Normal peripheral pulses. ABDOMEN: Soft, nontender, nondistended, normal active bowel sounds. EXTREMITIES: Normal range of motion. No edema. SKIN: Warm, dry, no rash. NEURO: No focal deficits. Alert and oriented x3. PSYCH: Normal mood and affect. Course Vital Signs Vital signs: Vital Signs Temperature 37.0 C 12/17/22 19:20 Pulse Rate 91 12/17/22 19:20 Respiratory Rate 18 12/17/22 19:20 Blood Pressure 143/64 H 12/17/22 19:20 Pulse Oximetry 99 12/17/22 19:20 Oxygen Delivery Room Air 12/17/22 19:20 Temperature 37.0 C 12/17/22 19:20 Pulse Rate 73 12/17/22 20:16 Respiratory Rate 18 12/17/22 20:16 Blood Pressure 125/65 12/17/22 20:16 Pulse Oximetry 96 12/17/22 20:16 Oxygen Delivery Room Air 12/17/22 19:20 Medical Decision Making [facility] Narrative Medical decision making narrative: Differential diagnosis includes head injury, cervical spine fracture, facial fracture, intrathoracic or intra-abdominal injury shoulder fracture clavicle fracture hip fracture/pelvis fracture CT head showed no acute abnormality CT C-spine and facial bones showed no evidence of fracture CT chest abdomen pelvis showed no acute abnormality Right shoulder x-ray showed no fracture Right hip x-ray and pelvis showed no evidence of fracture Vital Signs Vital Signs: Vital Signs Temperature 37.0 C 12/17/22 19:20 Pulse Rate 91 12/17/22 19:20 Respiratory Rate 1
== END 2022-12-17 22:46 | disposition home or self-care (01) ==
PROVIDERS: Emergency Provider Emergency Medicine; PCP Family Medicine
DX: S00.33XA Contusion of nose, initial encounter (principal); S40.011A Contusion of right shoulder, initial encounter; S70.01XA Contusion of right hip, initial encounter; S09.90XA Unspecified injury of head, initial encounter; G47.33 Obstructive sleep apnea (adult) (pediatric); Z87.891 Personal history of nicotine dependence; M47.812 Spondylosis without myelopathy or radiculopathy, cervical region; V80.010A Animal-rider injured by fall from or being thrown from horse in noncollision accident, initial encounter
CPT/HCPCS: 36415; 70450; 70486; 71260; 72125; 73030; 73502; 74177; 80053; 85025; 99284; L0140; Q9967

== ENCOUNTER 2023-01-07 11:00 | Outpatient (RCR) | payer MEDICARE, SELFPAY ==
--- NOTE | 2022-12-11 16:02 | OPREHPOC ---
Outpatient Therapy Plan of Care This is a Multidisciplinary Plan of Care that may contain components documented by all disciplines (PT, OT, and ST.) PT Problem 1 PT Problem #1 Knowledge Deficit PT Goal 1 Goal Pt to be IND with issued ISABEL Target Visit 4 PT Problem 2 PT Problem #2 Pain PT Goal 1 Goal Pt to report hip pain no greater than 3/10 in the last week/. Target Visit 4 PT Goal 2 Goal Pt to report 75% improvement in overall symptoms Target Visit 4 PT Problem 3 PT Problem #3 Impaired Strength PT Goal 1 Goal Pt to demonstrate 5xSTS in less than 15s Target Visit 4 PT Goal 2 Goal Pt to demonstrate hip abduction strength of 4/5 Target Visit 4 PT Problem 4 PT Problem #4 Impaired Functional Mobil PT Goal 1 Goal Pt to demonstrate a functional lift from ground level without compensations Target Visit 4 PT Goal 2 Goal Pt to demonstrate a 30lb lift and carry without an increase in pain Target Visit 4
--- NOTE | 2022-12-11 16:02 | PTOPEVAL1 ---
Assessment and note entered by Deysi Leger, PT, DPT Evaluation Information Assessment Status Evaluation Diagnosis R hip and knee pain Onset 1 year Subjective Information Pt states she shattered her knee cap about 5 years ago and states her quad never recovered from that . She also reports she has bursitis in her R hip that has been causing her pain, in the last year. She reports difficulty with stairs, when she lifts an item from the ground, or carries thing around. She has a knee brace that she wears and reports this does give her support. She states she has been limited in how far/long she can walk. She does a lot of walking and also enjoys riding horses. Reported Pain Level Pain Score 0,0: Self Report Assessment PT Clinical Summary Beatriz presents to therapy today for her initial evaluation with a diagnosis of R knee and hip pain . Today she demonstrates good LE ROM and good strength aside from hip abduction. She demonstrates increased lateral pelvic sway during ambulation and reports pain with functional movements like sit to stands and functional carries. Skilled therapy services are indicated to address her hip weakness, improve her gait, to manage pain, and to return to PLOF without limitations. Plan of Care Interventions Electrical Stimulation,Gait Training,Hot Pack/Cold Pack,Manual Therapy,Neuro Re-education,Patient/ Caregiver Educati,Therapeutic Activities, Therapeutic Exercise PT Services Indicated Yes Treatment Frequency and 1x/wk for 4 visits Duration These treatments will address the objective and functional deficits as defined above. The patient will be advanced safely and appropriately in order for the patient to progress towards his/her prior level of function. Additional exercises will be introduced and as well as a comprehensive home exercise program upon discharge, if needed, ?to ensure carryover of functional gains achieved in the clinic. This treatment plan has been reviewed and agreement upon by the patient.
--- NOTE | 2023-01-07 11:52 | PTOPDC ---
Assessment and note entered by Deysi Leger, PT, DPT Evaluation Information Assessment Status Discharge Diagnosis R hip and knee pain Onset 1 year Subjective Information Pt states she feels like she has relapsed since getting thrown off a horse. She states she did some hiking last week and was limited by fatigue vs hip pain. She states her gait feels pretty close to normal and she has been able to ride again. Reported Pain Level Pain Score 0,1: Self Report Assessment PT Clinical Summary Beatriz presents to therapy today for her progress report following 5 visits of therapy to treat her diagnosis of R knee and hip pain. Today she demonstrates good LE ROM and good strength with improved hip abduction strength kena. Today she ambulates and navigates stairs without compensations. She has met all of her therapy goals and no longer requires skilled services. She will be discharged at this time.
== END 2023-01-20 13:51 | disposition home or self-care (01) ==
LOC: ANHGOSHPT 11:00
PROVIDERS: PCP Family Medicine; Visit Provider Family Medicine
DX: M70.61 Trochanteric bursitis, right hip (principal); M25.562 Pain in left knee; R26.89 Other abnormalities of gait and mobility
CPT/HCPCS: 97110; 97140; 97161; 97530

== ENCOUNTER 2023-08-12 09:14 | Outpatient (CLI) | payer MEDICARE, SELFPAY ==
--- NOTE | ~2023-08-12 | MM_ITS ---
EXAMINATION: MM screening [facility] BI w noemi HISTORY: Screening TECHNIQUE: Craniocaudal and mediolateral oblique 3-D tomosynthesis images were obtained and synthetic 2-D images were generated. CAD analysis was submitted and interpreted. COMPARISON: Comparison to multiple prior studies sequentially, with oldest reviewed study dated 05/2014. BREAST PARENCHYMAL COMPOSITION: The breasts are almost entirely fatty. FINDINGS: There is no evidence of suspicious mass, calcification, or architectural distortion to sugg est malignancy in either breast. There has been no suspicious interval change. IMPRESSION: 1. No mammographic evidence of malignancy. 2. Recommend routine screening mammography in one year. BI-RADS Category 1: Negative Reviewed, dictated and finalized at location A.
== END 2023-08-12 09:15 | disposition home or self-care (01) ==
PROVIDERS: PCP Family Medicine; Visit Provider Nurse Practitioner Family
DX: Z12.31 Encounter for screening mammogram for malignant neoplasm of breast (principal)
CPT/HCPCS: 77063; 77067

== ENCOUNTER 2023-09-15 09:27 | Outpatient (CLI) | payer MEDICARE, SELFPAY ==
[2023-09-15 19:26] LABS: Alanine Aminotransferase 23 U/L (6-35); Albumin Level 4.2 g/dL (3.5-5.1); Alkaline Phosphatase 91 U/L (38-126); Anion Gap 8 mmol/L (4-12); Aspartate Amino Transferase 32 U/L (14-36); Bilirubin,Total 0.5 mg/dL (0.2-1.3); Blood Urea Nitrogen 12 mg/dL (7-17); Calcium 9.3 mg/dL (8.4-10.2); Carbon Dioxide 26 mmol/L (22-30); Chloride 107 mmol/L (98-107); Cholesterol 220 mg/dL (0-200); Estimated Glomerular Filt Rate > 60; Glucose 80 mg/dL (65-110); HDL Direct 45 mg/dL; Potassium 4.4 mmol/L (3.4-5.0); Sodium 141 mmol/L (137-145); Triglycerides 232 mg/dL (<150)
[2023-09-15 19:31] LABS: Basophils Percent Auto 0.5 % (0.2-1.2); Eosinophils Absolute Auto 0.4 K/mm3 (0-0.3); Eosinophils Percent Auto 5.3 % (0-4.4); Hematocrit 43.4 % (37.0-47.0); Hemoglobin 13.9 g/dL (12.0-15.0); Immature Granulocyte Absolute 0.01 K/mm3 (0.00-0.031); Immature Granulocyte Percent A 0.1 % (0-0.5); Lymphocytes Absolute Auto 2.41 K/mm3 (0.9-3.2); Lymphocytes Percent Auto 32.8 % (18.3-44.2); Mean Corpuscular Hemoglobin 29.9 pg (26-34); Mean Corpuscular Volume 93.3 fl (80-100); Mean Platelet Volume 11.2 fl (7.4-10.4); Monocytes Absolute Auto 0.5 K/mm3 (0.1-0.6); Monocytes Percent Auto 6.1 % (2.6-8.5); Neutrophils Percent Auto 55.2 % (45.5-73.1); Platelet Count Result 248 k/mm3 (150-375); Red Blood Count 4.65 M/mm3 (4.2-5.4); Red Cell Distribution Width 13.3 % (11.5-14.5); White Blood Count 7.3 K/mm3 (4.5-10.0)
[2023-09-15 19:37] LABS: LDL Cholesterol Direct 142 mg/dL
[2023-09-15 19:53] LABS: Hemoglobin A1C 6.2 % (<5.7)
== END 2023-09-15 09:28 | disposition home or self-care (01) ==
LOC: ANHGOSHLAB 09:29
PROVIDERS: PCP Family Medicine; Visit Provider Family Medicine
DX: R73.03 Prediabetes (principal); G47.33 Obstructive sleep apnea (adult) (pediatric)
CPT/HCPCS: 36415; 80053; 80061; 83036; 85025

== ENCOUNTER 2024-04-04 10:14 | Outpatient (CLI) | payer MEDICARE, SELFPAY ==
[2024-04-04 13:48] LABS: Alanine Aminotransferase 21 U/L (6-35); Albumin Level 4.2 g/dL (3.5-5.1); Alkaline Phosphatase 91 U/L (38-126); Anion Gap 9 mmol/L (4-12); Aspartate Amino Transferase 36 U/L (14-36); Bilirubin,Total 0.6 mg/dL (0.2-1.3); Blood Urea Nitrogen 18 mg/dL (7-17); Calcium 9.1 mg/dL (8.4-10.2); Carbon Dioxide 25 mmol/L (22-30); Chloride 105 mmol/L (98-107); Cholesterol 243 mg/dL (0-200); Estimated Glomerular Filt Rate > 60; Glucose 90 mg/dL (65-110); HDL Direct 46 mg/dL; Potassium 4.5 mmol/L (3.4-5.0); Sodium 139 mmol/L (137-145); Triglycerides 183 mg/dL (<150)
[2024-04-04 13:57] LABS: LDL Cholesterol Direct 149 mg/dL
[2024-04-04 21:26] LABS: Hemoglobin A1C 6.5 % (<5.7)
== END 2024-04-04 10:15 | disposition home or self-care (01) ==
LOC: ANHGOSHLAB 10:15
PROVIDERS: PCP Family Medicine; Visit Provider Family Medicine
DX: E66.9 Obesity, unspecified (principal); R73.03 Prediabetes
CPT/HCPCS: 36415; 80053; 80061; 83036

== ENCOUNTER 2024-05-09 14:51 | Outpatient (CLI) | payer MEDICARE, SELFPAY ==
--- NOTE | ~2024-05-09 | CT_ITS ---
EXAMINATION: CT sinus wo con DATE: 05/09/2024 15:02 INDICATION: Chronic sinusitis, unspecified. TECHNIQUE: Computed tomography (CT) of the paranasal sinuses was performed without intravenous contra st. Iterative reconstruction technique was employed. The dose-length product was 434.28 mGy-cm. COMPARISON: None FINDINGS: There is mild mucosal thickening in right frontal sinus and the bilateral ethmoid and sphen oid sinuses. The maxillary sinuses are clear. There are Priscila cells bilaterally. There is shanel bul losa involving right middle turbinate. There is pneumatization of the vertical lamina of left middle turbinate. The nasal septum is at midline. The ostiomeatal units are patent. IMPRESSION: 1. Mild mucosal thickening in the paranasal sinuses. Reviewed, dictated and finalized at location A. 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
== END 2024-05-09 14:52 | disposition home or self-care (01) ==
LOC: GOSHIMG 14:52
PROVIDERS: PCP Otolaryngology Otolaryngology/Facial Plastic Surgery; Visit Provider Otolaryngology Otolaryngology/Facial Plastic Surgery
DX: J32.9 Chronic sinusitis, unspecified (principal)
CPT/HCPCS: 70486

== ENCOUNTER 2024-07-07 00:47 | Day surgery (SDC) | payer MEDICARE, SELFPAY ==
--- NOTE | 2024-06-29 08:39 | PC.NURSE ---
Report to the Outpatient Waiting Room, entrance under the green pavilion located off [facility], at time _9:30 AM on date _07/07/24 . Planned Procedure Time: _11:30 AM .? Time changes happen often and if your time is changed the preop area will call you the afternoon before. - You and your visitor will be asked to self-screen and do not enter if you have any COVID symptoms. Please call surgeon if you need to reschedule. - A mask is optional within the hospital at this time. Patients may have clear liquids (water, carbonated beverages, clear teas, apple juice) until 3 hours prior to surgery ( 8:30 AM) with a maximum of 20 ounces. - No food from midnight until time of surgery and no smoking, or chewing tobacco (or any form of nicotine). No chewing gum, candy or mints. Take only the following medications with a SIP of water on the morning of surgery: NONE DO NOT STOP ANY OF YOUR OTHER PRESCRIPTION MEDICATIONS PRIOR TO SURGERY EXCEPT THE FOLLOWING Hold all vitamins and supplements for 3 days per anesthesiologist. LAST DOSE 07/03/24 Medications to discontinue per physician NONE Date to take last dose Please no make-up, nail malay, hairspray, perfume, deodorant, or body powder the day of surgery.? No jewelry (including any body piercings) or valuables the day of surgery, leave them at home.? Please take a shower or bath the night before, or the morning of, surgery with an antibacterial soap.? Wear comfortable, loose fitting clothing.? Children are encouraged to wear pajamas. - Jewelry must be removed prior to entering the operating room.? Rings and piercings that are not removed may be cut off. - The hospital will not accept responsibility for valuables.? - Please leave all valuables, including medications, at home the day of surgery. If you are going home after surgery, a licensed pickup driver must drive you home.? - NO public transportation without another adult if you receive anesthesia. - We recommend that an adult stay with you for 24 hours following discharge. - We also recommend that you do not drive, make important decision, drink alcoholic beverages, or take any drugs that were not prescribed by your health care provider for at least 24 hours after your discharge time. For Pediatric surgeries, we recommend two adults accompany the child home. Follow any additional instructions given to you from your surgeon. Telephone instructions given to _PATIENT and asked if any additional questions and then verbalized understanding. Patient advised to call surgeon office or pre surgery nurse liaison [phone] if any additional questions.
[2024-06-29 08:59] VITALS: BMI 35.2
--- NOTE | 2024-07-06 12:53 | P.HP_ITS ---
H&P: HPI History of Present Illness Date/Time: 07/06/24 12:53 Chief Complaint: chronic recurrent sinusitis Review of Systems Constitutional: Constitutional: Reports as per HPI ENT: Reports as per HPI Respiratory: Respiratory: Reports as per HPI Gastrointestinal: Gastrointestinal: Reports as per HPI [facility] Past Medical History Medical History Chronic rhinitis Sinus headache Nasal congestion COVID-19 Limping Former smoker three years Trochanteric bursitis, right hip Torn ligament Broken ankle Obstructive sleep apnea Surgical History Surgical History H/O section Hx of breast reduction, elective Family History Family History Father Diabetes mellitus, Onset Age: 47 Hypertension, Onset Age: 47 Grandparent Diabetes mellitus Mother Diabetes mellitus Hypertension Sibling Hypertension Social History Social History Social History: Caffeine-soda Smoking packs per day: 0.5 Smoking cigarettes per day: 10.0 Years smoked: 3 Smoking pack-years: 1.50 Smoking status: Former smoker Tobacco type: cigarettes Smoking end date: 03/22/79 Alcohol intake: current Drinks per week: 1 Alcohol use details: beer, bourbon occasionally Substance use: never Substance use type: does not use Do You Feel Safe in your Home?: Yes Lack of Transportation: No Lack of Food: Never True Current Housing: I Have Housing Concerned About Future Housing: No Difficulty Paying Gas/Electric Bills: No Difficulty Paying for Meds: No Currently Unemployed: No Living arrangements: with family Spiritual care concerns: No Meds Home Medications and Allergies Home Medications ?Medication ?Instructions ?Recorded ?Confirmed ?Type montelukast 10 mg tablet 10 mg PO QHS #90 tabs 09/21/23 06/29/24 Rx azelastine 137 mcg (0.1 %) nasal 1 spray intranasal Q12H PRN 05/22/24 06/29/24 History spray allergy symptoms sodium bicarbonate-sodium chloride 1 packet .Route DAILY 06/02/24 06/29/24 History packet for sinus irrigation ([employer] Pediatric Sinus Rinse Refill packet) valacyclovir 1 gram tablet 1,000 mg PO Q8H #21 tabs 06/21/24 06/29/24 Rx mometasone 50 mcg/actuation nasal See Rx Instructions .Route 06/26/24 06/29/24 Rx spray .COMPLEX #17 grams cholecalciferol (vitamin D3) 50 50 mcg PO DAILY 06/29/24 06/29/24 History mcg (2,000 unit) capsule coQ10 (ubiquinol) 200 mg capsule 200 mg PO DAILY 06/29/24 06/29/24 History cyanocobalamin (vitamin B-12) 1,000 mcg PO DAILY 06/29/24 06/29/24 History 1,000 mcg capsule rusuaumfufat-Zk-gozw-minerals 18 1 tablet PO DAILY 06/29/24 06/29/24 History mg-0.4 mg tablet turmeric 400 mg capsule 400 mg PO DAILY 06/29/24 06/29/24 History vit C 30 mg-s.strauss 250 mg-celery 1 cap PO DAILY 06/29/24 06/29/24 History seed 75 mg-grape seed extrt capsule (Tart Strauss) Allergies Allergy/AdvReac Type Severity Reaction Status Date / Time doxycycline Allergy Intermediate Other Verified 06/29/24 08:40 tetracycline AdvReac Intermediate PEELING OF Verified 06/29/24 08:40 SKIN aspirin AdvReac Unknown upset Verified 06/29/24 08:40 stomach Exam Const: General: cooperative, healthy appearing, comfortable, no acute distress, alert and awake HENMT: Head: normocephalic and atraumatic Ears: external ears normal and EAC's normal Face/Nose/Sinus: Normal external nose present and Normal nares present Mouth: Yes Normal oral and palatal mucosa present and Yes lip normal Eyes: General: appearance normal, both eyes and all related structures Neck: Neck: normal visual inspection Resp: Effort & Inspection: normal respiratory effort and able to speak in complete sentences
[2024-07-07] VITALS (9 sets, daily range): BP systolic 112–132; BP diastolic 52–76; PULSE 68–84; RESP 16–20; TEMP 36.1–37.1; O2SAT 93–97; BMI 35.1
--- OUTSIDE RECORDS SUMMARY | 2024-07-07 00:50 | XMS_ITS | Clinical Summary ---
Author Organization [facility] Address [address] [address] Phone Care Team Providers Care Talent Acquisition Operations Manager Name Role Phone Rony Tucker MD Primary Care Provider Social History Tobacco Use Types Packs/Day Years Used Date Smoking Tobacco: Never Assessed Comments Unknown Sex and Gender Information Value Date Recorded Sex Assigned at Not on file Legal Sex Female 12:42 AM CDT Gender Identity Not on file Sexual Orientation Not on file Plan of Treatment Health Maintenance Due Date Last Done Comments DEXA Bone Density 1954 Hepatitis C Virus (HCV) Screening 1955 TdaP Immunization 1954 Colonoscopy 1999 Colorectal Cancer Screening 1999 Cologuard 2004 Immunochemical Fecal Occult Blood 2004 Mammogram 2004 Pneumococcal Immunization (5 0+ years) (1 of 1 - PCV) 2004 Zoster Immunization (1 of 2) 2004 Influenza Immunization (#1) 2023 SARS-COV-2 Immunization (2023- season) 2023 Respiratory Syncytial Virus (RSV) Immunization (Adult) (1 - 1-dose 75+ series) 2029 Hepatitis B Immunization Aged Out No longer eligible based on patient's age to complete this topic Meningococcal Immunization (ACWY) Aged Out No longer eligible based on patient's age to complete this topic Rotavirus Immunization Aged Out No lo nger eligible based on patient's age to complete this topic Insurance MEDICARE Care Teams Talent Acquisition Operations Manager Relationship Specialty Start Date End Date Rony Tucker MD [address] [place] [address] PCP - General Family Medicine 01/26/20
--- OUTSIDE RECORDS SUMMARY | 2024-07-07 00:50 | XMS_ITS | Clinical Summary ---
Author Organization [facility] Administrative Offices Address [address] [place] [id number] Care Team Providers Care Machine Spreader Name Role Phone Rony Tucker MD Primary Care Provider Allergies Active Allergy Reactions Criticality Noted Date Comments Doxycycline Other (See Comments) 08/08/2018 Skin peel off Medications No known medications Social History Tobacco Use Types Packs/Day Years Used Date Smoking Tobacco: Never Smokeless Tobacco: Never Alcohol Use Standard Drinks/Week Comments Yes 0 (1 standard drink = 0.6 oz pur e alcohol) occassional Comments Unknown Sex and Gender Information Value Date Recorded Sex Assigned at Not on file Legal Sex Female 12:35 PM CDT Gender Identity Not on file Sexual Orientation Not on file Last Filed Vital Signs Vital Sign Reading Time Taken Comments Blood Pressure 125/67 08/09/2018 2:44 PM CDT Pulse 78 08/09/2018 2:44 PM CDT Temperature 37.1 C (98.7 F) 08/09/2018 2:44 PM CDT Respiratory Rate 16 08/09/2018 7:47 AM CDT Oxygen Saturation 96% 08/09/2018 2:44 PM CDT Inhaled Oxygen Concentration - - Weight 79.5 kg (175 lb 4.8 oz) 08/09/2018 7:47 A M CDT Height 154.9 cm (5' 1 ) 08/09/2018 7:47 AM CDT Body Mass Index 33.12 08/09/2018 7:47 AM CDT Plan of Treatment Health Maintenance Due Date Last Done Comments DTAP/TDAP/TD VACCINES (1 - Tdap) 1973 BREAST CANCER SCREENING 1994 COLORECTAL SCREENING 1999 Colorectal Cancer Screening 1999 FIT-DNA Q 3 years 1999 FIT/FOBT Q 1 year 1999 Flex Sig/CT Colonography Q 5 years 1999 PNEUMOCOCCAL VACCINE 50+ YEARS (1 of 1 - PCV) 03/11/20 04 ZOSTER VACCINE (1 of 2) 2004 OSTEOPOROSIS SCREENING 2019 INFLUENZA VACCINE (#1) 2023 RSV VACCINE (60+ or ) (1 - 1-dose 75+ series) 2029 [place] [id number] [facility] ACCESS CHOICE Care Teams Machine Spreader Relationship Specialty Start Date End Date Rony Tucker MD [address] [place] [id number] PCP - General Family Practice 07/06/18
--- OUTSIDE RECORDS SUMMARY | 2024-07-07 00:50 | XMS_ITS | Continuity of Care Document ---
Author Organization [facility] Address [address] [place] [address] Phone Care Team Providers Care Reimbursement Liaison Name Role Phone Homer Parry MD Unavailable Unavailable Allergies, Adverse Reactions, Alerts Substance Reaction Status Criticality doxycycline Active No Information Medications Medication Instructions Dosage Effective Dates (start - stop) Status Comments potassium 99 mg tablet - Active B12 5,000 mcg-100 mcg sublingual lozenge - Active niacin 500 mg tablet take 1 tablet by or al route 4 times every day 500 MG - Active Procedures Procedure Date OFFICE/OUTPATIENT VISIT [facility] Advance Directives Directive Yes / No Effective Date File Name No Information Encounters Encounter Description Practice Location Reason(s) For Visit Diagnoses Date Provider Providers Copied on Encounter OFFICE/OUTPA TIENT VISIT [facility], [address], [place], [address], tel:[phone] [facility] Body mass index (BMI) 30.0-30.9, adultTrigger ring finger of right handRight hand weaknessCervica l radiculopathy at C8 7-201 [address] Brinda Coronel. [address] [place], [place], [id number] . tel:[phone] Referring Provider: Manjeet Paez, [address], [place], [address] . tel:[phone] Family History Family Member Type Diagnosis Age At Onset Mother Problem (finding) Alive and well Immunizations Vaccine Date Status Comments Pneumo (2 yrs or older)(PPV) administered Source: Other Provider Payers Payer name Insurance type Covered alliance party ID Authornestor swain(s) Blue Access Choice PPO [id number] [id number] Social History Type Description Quantity Date Captured [...]
--- NOTE | 2024-07-07 07:19 | WPDHPUPDATE1 ---
History and Physical Update Update Date/Time: 07/07/24 07:19 History and Physical has been reviewed, including an updated exam of the patient. There are NO changes in the patient's condition. Risks, benefits, and alternatives have been discussed and questions answered. Patient agrees to proceed with procedure.
[2024-07-07] MEDS: LACTATED RINGERS 1,000 ML 30 ML IV CONT ×2 (10:15→14:58)
[2024-07-07] MEDS: ACETAMINOPHEN 500 MG TABLET 1000 MG PO (10:25)
[2024-07-07] MEDS: OXYMETAZOLINE HCL 0.05% NAS 15 ML BTL (*BKC) 2 SPRAY NASAL ×3 (10:25→10:35)
--- NOTE | 2024-07-07 11:39 | P.PNAN_ITS ---
Anes - Initial Pre Proc Eval Procedure: Operation Date: 07/07/24 12:00 Proposed Procedures p Bilateral Maxillary Antrostomy, Complete Anterior and Posterior Ethmoidectomy, Bilateral Frontal Sinusotomy, Left Sphenoidotomy, Right Bruna Bullosa, - Elzbieta Gonzalez MD s Bilateral Inferior Turbinate Reduction, - MD fransisco [place] Septoplasty - Elzbieta Gonzalez MD Date/Time: 07/07/24 11:39 Surgeon: Elzbieta Gonzalez MD Pre Op Diagnosis: chronic sinusitis Patient Data Age: 69 Gender: F Height: 1.52 m Weight: 81.6 kg Last Vital Signs Temp 98.7 F 07/07/24 10:00 Pulse 84 07/07/24 10:00 Resp 18 07/07/24 10:00 BP 125/52 L 07/07/24 10:00 Pulse Ox 97 07/07/24 10:00 O2 Del Method Room Air 07/07/24 10:00 Allergies Allergy/AdvReac Type Severity Reaction Status Date / Time doxycycline Allergy Intermediate Other Verified 07/07/24 10:30 tetracycline AdvReac Intermediate PEELING OF Verified 07/07/24 10:30 SKIN aspirin AdvReac Unknown upset Verified 07/07/24 10:30 stomach Home Medications ?Medication ?Instructions ?Recorded ?Confirmed ?Type montelukast 10 mg tablet 10 mg PO QHS #90 tabs 09/21/23 07/07/24 Rx azelastine 137 mcg (0.1 %) nasal 1 spray intranasal Q12H PRN 05/22/24 06/29/24 History spray allergy symptoms sodium bicarbonate-sodium chloride 1 packet .Route DAILY 06/02/24 06/29/24 History packet for sinus irrigation ([employer] Pediatric Sinus Rinse Refill packet) mometasone 50 mcg/actuation nasal See Rx Instructions .Route 06/26/24 06/29/24 Rx spray .COMPLEX #17 grams cholecalciferol (vitamin D3) 50 50 mcg PO DAILY 06/29/24 07/07/24 History mcg (2,000 unit) capsule coQ10 (ubiquinol) 200 mg capsule 200 mg PO DAILY 06/29/24 07/07/24 History cyanocobalamin (vitamin B-12) 1,000 mcg PO DAILY 06/29/24 07/07/24 History 1,000 mcg capsule eftywfoyocis-Dc-iwhn-minerals 18 1 tablet PO DAILY 06/29/24 07/07/24 History mg-0.4 mg tablet turmeric 400 mg capsule 400 mg PO DAILY 06/29/24 07/07/24 History vit C 30 mg-s.strauss 250 mg-celery 1 cap PO DAILY 06/29/24 07/07/24 History seed 75 mg-grape seed extrt capsule (Tart Strauss) Patient hx anesthesia problems: other (Pt states that she likes to sleep a long time after GA/sedation. ) Family hx anesthesia problems: none Results Review: All pre-operative results and documents have been reviewed as part of the pre- operative evaluation. [facility] Past Medical History Medical History Chronic rhinitis Sinus headache Nasal congestion COVID-19 Limping Former smoker three years Trochanteric bursitis, right hip Torn ligament Broken ankle Obstructive sleep apnea Surgical History Surgical History H/O section Hx of breast reduction, elective Family History Family History Father Diabetes mellitus, Onset Age: 47 Hypertension, Onset Age: 47 Grandparent Diabetes mellitus Mother Diabetes mellitus Hypertension Sibling Hypertension Social History Social History Social History: Caffeine-soda Smoking packs per day: 0.5 Smoking cigarettes per day: 10.0 Years smoked: 3 Smoking pack-years: 1.50 Smoking status: Former smoker Tobacco type: cigarettes Smoking end date: 03/22/79 Alcohol intake: current Drinks per week: 1 Alcohol use details: beer, bourbon occasionally Substance use: never Substance use type: does not use Do You Feel Safe in your Home?: Yes Lack of Transportation: No Lack of Food: Never True Current Housing: I Have Housing Concerned About Future Housing: No Difficulty Paying Gas/Electric Bills: No Difficulty Paying for Meds: No Currently Unemployed: No Living arrangements: with family Spiritual care concerns: No Anes - Eval Final PreProcedure Day of Procedure 07/07/24 11:39 Patient weight: obese Lungs: normal air movement Airway: Mallampati scale class II Neurological: alert and oriented ASA classification: III Emergent: no Anesthetic plan: proceed Anesthesia type and monitoring: general ETT and standard monitoring Results Review: All pre-operative results and documents have been reviewed as part of the pre- operative evaluation. YEHUDA, thinks severe, on CPAP, borderline DM, hyperlipidemia, ex smoker quit 1990s, BMI 35. Pt works out w marching routine/wts most days of the week, rides horse, no cp or sob. Informed Consent: The patient's anesthetic plan and its attendant risks and benefits were discussed with the patient/family/POA. Questions were solicited and answers provided to the satisfaction of the patient/family/POA.
[2024-07-07] MEDS: ceFAZolin 2 GM/D5W 50 ML 2 GM/50 ML BAG IVPB (11:58)
[2024-07-07] MEDS: LIDO 1%/EPINEPHRINE 1:100,000 50 ML VIAL INFILTRATE (12:10)
[2024-07-07] MEDS: COCAINE HCL (*CRX) 4% TOP SOLN 4 ML VIAL 1 APPLIC TOPICAL (12:11)
[2024-07-07] MEDS: MUPIROCIN 2% OINT 22 GM TUBE 1 APPLIC TOPICAL (14:27)
[2024-07-07] MEDS: ceFAZolin SODIUM 1 GM VIAL IV PUSH (14:40)
--- NOTE | 2024-07-07 14:45 | PM.OP ---
Procedure Note - Brief Procedure Note - Brief Date of procedure: 07/07/24 chronic sinusitis Procedure performed: septoplasty-bilateral inferior turbinate reduction-bilateral complete ethmoidectomy-right shanel bullosa reduction -right fontal sinuotomy Surgeon: Elzbieta Gonzalez MD Drains: No Packing: Yes (absorbable nasal packing) Pathology: Yes (right maxillary contents ) Disposition: PACU
[2024-07-07] MEDS: methylPREDNISolone SOD SUCC 40 MG VIAL 20 MG IM (15:12)
[2024-07-07] MEDS: oxyCODONE HCL (*CRX) 5 MG TAB IR PO (16:14)
--- NOTE | 2024-07-07 16:46 | P.OP_ITS ---
Procedure Note - Detailed Date of Procedure 07/07/24 Pre-op Diagnosis chronic sinusitis-deviated nasal septum-hypertrophy of nasal turbinates Post-op Diagnosis Same Procedure Performed ? Endoscopic septoplasty ? Nasal endoscopy with maxillary antrostomy bilaterally. ? Nasal endoscopy with ethmoidectomy, total (anterior and posterior) bilaterally. ? Nasal endoscopy with frontal sinusotomy bilaterally. ? Bilateral inferior turbinate reduction (intramural (submucosal) ablation of the inferior turbinate.) ? Therapeutic fracture of the inferior turbinates bilaterally. ? Nasal endoscopy with removal of shanel bullosa right side . Surgeon Elzbieta Gonzalez MD Anesthesia General Description of Procedure DESCRIPTION OF PROCEDURE: The patient was seen in the preoperative area, informed consent was checked and confirmed. The patient was taken to the operating room, sedated and placed under general anesthesia with an Endotracheal tube . Eyes were taped and were prepped and draped in the usual sterile fashion. The nose was examined, and the anterior septum was injected with 1% lidocaine with 1:100,000 epinephrine. [place] incision was made and a mucoperichondrial flap was elevated to expose the quadrangular cartilage and bony septum. Incision was then made anteriorly on the quadrangular cartilage to elevate the contralateral mucoperichondrial flap. The deviated quadrangular cartilage was excised . At least 1 cm of dorsal and caudal strut of quadrangular was left in place. We resected the deviated bony septum with a Brad-Mendoza and a pituitary forceps. After adequate resection of the posterior-inferior bony septum, the mucoperichondrial Flap was laid back in anatomic position. We proceeded to the endoscopic sinus procedure starting on the right side. The agger nasi area was injected with 1% lidocaine with 1:100,000 epinephrine. The body of the middle turbinate was injected with 1% lidocaine with 1:100,000 epinephrine. The middle turbinate was gently medialized and the uncinectomy was performed with a pediatric Avery backbiter and the uncinectomy was completed with a shaver from the inferior-posterior attachment to the superior anterior attachment. The ethmoidectomy was performed by shaving the anterior ethmoid bulla and care was taken to protect the skull base in the lamina papyracea. Maxillary antrum was re-examined with a 30-degree scope. A ball probe was passed into the antrum and was further widened with a backbiter in the anterior- inferior aspect. The right shanel bullosa was resected with a shaver. The lateral wall of the shanel bullosa was resected with care taken to protect its medial wall and middle turbinate attachment to the lateral nasal wall and the skull base.? was done through the inferio-medial quadrant of basal lamella, posterior ethmoid air cells were removed from anterior to posterior direction and from inferior to superior taking care to preserve skull base and lamina papyracea. Then, lateralization of the middle turbinate and shaving, opening of the posterior corridor and shaving the posterior part of the middle turbinate to widen the superior meatus.? Agger Nasi cells on right were opened with the shaver and 30-degree scope. Frontal sinus ostium was identified with lighted guidewire. Then the balloon was passed into the frontal sinus and the ostia was adequately dilated. Shaver was used to debride excess tissue to clear the frontal recess. Pledgets were placed in the ethmoid cavity. and we proceeded to the left side. The agger nasi area was injected with 1% lidocaine with 1:100,000 epinephrine, Middle turbinate was gently medialized. Uncinectomy was performed with a pediatric Avery backbiter. An uncinectomy was performed by shaving the uncinate from its posterior-inferior attachment to the anterior-superior attachment. Then, ethmoidectomy was performed by shaving the ethmoid bulla with care taken to protect the skull base and the lamina papyracea. Then, a 30-degree scope was used, and the ball probe was passed into the maxillary antrum and was further widened inferiorly with pediatric Avery backbiter. Agger Nasi cells on left were opened with the shaver and 30-degree scope. Frontal sinus ostium was identified with lighted guidewire. Then the balloon was passed into the frontal sinus and the ostia was adequately dilated. Shaver was used to debride excess tissue to clear the frontal recess. ?Left posterior ethmoidectomy was done through the inferio-medial quadrant of basal lamella, posterior ethmoid air cells were removed from anterior to posterior direction and from inferior to superior taking care to preserve skull base and lamina papyracea. Then, lateralization of the middle turbinate and shaving, opening of the posterior corridor and shaving the posterior part of the middle turbinate to widen the superior meatus.? We proceeded with submucosal inferior turbinate reduction, starting on the right side, a stab incision was made anterior mucosa of inferior turbinate. Submucosal pocket was created along the length of the inferior turbinate and the microdebrider blade 2.5mm thick was introduced anteriorly and into the whole submucosal pocket. Microdebrider was then used to remove the hypertrophied bony parts of anterior turbinate head and soft tissue with the outer layer intact. The residual inferior turbinate was then out fractured using Boies elevator. We proceeded to the left side. A stab incision was made on the anterior mucosa of inferior turbinate. Submucosal pocket was created along the length of the inferior turbinate and the microdebrider blade 2.5mm thick was introduced anteriorly and into the whole submucosal pocket. Microdebrider was then used to remove the hypertrophied bony parts of anterior turbinate head and soft tissue with the outer layer intact. The residual inferior turbinate was then out fractured using Boies elevator. Pledgets were removed from ethmoid cavities, NasoPore sponges were placed ethmoid cavities bilaterally and infiltrated with a mixture of kenalog? and cefazolin. The nose was then suctioned clean and at this point the care of the patient was then transferred to the anesthesiologist where the patient emerged from general anesthesia without complication. Estimated Blood Loss 50 (ml) Drains No Packing Yes (nasopore absorbable packing-richmond splints were placed ) Pathology Yes (right maxillary contents) Complications No immediate complications Condition Stable Disposition PACU [facility] Billing Surgery - Charge Forward: Surgery Billing
== END 2024-07-07 16:58 | disposition home or self-care (01) ==
PROVIDERS: PCP Family Medicine; Visit Provider Otolaryngology Otolaryngology/Facial Plastic Surgery
PROC: (CPT 31256; principal; 2024-07-07 12:00)
PROC: (CPT 31256; 2024-07-07 12:00)
PROC: (CPT 30520; 2024-07-07 12:00)
DX: J32.9 Chronic sinusitis, unspecified (principal); J34.3 Hypertrophy of nasal turbinates; J34.2 Deviated nasal septum
CPT/HCPCS: 31256; 31253; 61782; 31240; 30140; 30520; A9270; C1726; J0690; J1100; J2003; J2004; J2250; J2270; J2371; J2405; J2704; J2919; J3010; J3301; J7050; J7120

== ENCOUNTER 2024-08-25 13:41 | Outpatient (CLI) | payer MEDICARE, SELFPAY ==
--- OUTSIDE RECORDS SUMMARY | 2024-08-25 13:44 | XMS_ITS | Clinical Summary ---
Author Organization [facility] Administrative Offices Address [address] [place] [address] Care Team Providers Care Manager Maintenance Name Role Phone Rony Tucker MD Primary Care Provider [phone] Allergies Active Allergy Reactions Criticality Noted Date [...] A M CDT Height 154.9 cm (5' 1) 08/09/2018 7:47 AM CDT Body Mass Index [...] - 1-dose 75+ series) 2029 [place] [address] [facility] Equals6 ACCESS CHOICE Care Teams Manager Maintenance Relationship Specialty Start Date End Date Rony Tucker MD [address] [place] [phone] PCP - General Family Practice 07/06/18
--- OUTSIDE RECORDS SUMMARY | 2024-08-25 13:44 | XMS_ITS | Continuity of Care Document ---
Author Organization [facility] Address [address] [facility] [address] [place] [address] Phone Care Team Providers Care Portable Irrigation Operator Name Role Phone Homer Parry MD Unavailable [...] - Active Procedures Procedure Date OFFICE/OUTPATIENT VISIT [facility] Advance Directives Directive Yes / No Effective Date File Name No Information Encounters Encounter Description Practice Location Reason(s) For Visit Diagnoses Date Provider Providers Copied on Encounter OFFICE/OUTPA TIENT VISIT [facility], [address] [facility] [address], [place], [address], tel:[phone] [facility] Body mass index (BMI) 30.0-30.9, adultTrigger ring finger of right handRight hand weaknessCervica l radiculopathy at C8 7-201 9 Brinda Coronel. [address] [place], [place], [id number] . tel:[phone] Referring Provider: Manjeet Paez, [address] [facility] [address], [place], [address] . tel:[phone] Family History Family Member Type Diagnosis Age At Onset Mother Problem (finding) Alive and well Immunizations Vaccine Date Status Comments Pneumo (2 yrs or older)(PPV) administered Source: Other Provider Payers Payer name Insurance type Covered democrat ID Authornestor swain(s) Blue Access Choice PPO E2 [id number] Social History Type Description Quantity Date Captured [...]
--- OUTSIDE RECORDS SUMMARY | 2024-08-25 13:44 | XMS_ITS | Clinical Summary ---
Author Organization [facility] Address [address] [address] Phone Care Team Providers Care Safety Deposit Supervisor Name Role Phone Rony Tucker MD Primary [...] complete this topic Insurance MEDICARE Care Teams Safety Deposit Supervisor Relationship Specialty Start Date End Date Rony Tucker MD [address] [place] [address] PCP - General Family Medicine 01/26/20
[2024-08-29 15:58] LABS: Almond (F20) IgE 0.13 kU/L; Alternaria alternata IgE <0.10 kU/L; Alternaria alternata IgE Class 0; Aspergillus fumigatus IgE <0.10 kU/L; Bermuda Grass (G2) IgE <0.10 kU/L; Bermuda Grass (G2) IgE Class 0; Brazil Nut (f18) <0.10 kU/L; Brazil Nut (f18) Class 0; Cashew Nut (F202) IgE <0.10 kU/L; Cashew Nut (F202) IgE Class 0; Cat Dander IgE <0.10 kU/L; Cat Dander IgE Class 0; Cladosporium herbarum IgE <0.10 kU/L; Cladosporium herbarum IgE Clas 0; Cockroach IgE <0.10 kU/L; Cockroach IgE Clas 0; Codfish (F3) IgE <0.10 kU/L; Codfish (F3) IgE Class 0; Common Ragweed IgE Class 0; Cottonwood IgE <0.10 kU/L; Cow's Milk (F2) IgE <0.10 kU/L; Cow's Milk (F2) IgE Class 0; Dermatophagoides Farinae Class 0; Dermatophagoides Pterony Class 0; Dermatophagoides Pteronyssinus <0.10 kU/L; Dog Dander IgE <0.10 kU/L; Egg White (F1) IgE <0.10 kU/L; Egg White (F1) IgE Class 0; Elm (T8) IgE <0.10 kU/L; Elm (T8) IgE Class 0; Hazelnut (F17) IgE <0.10 kU/L; Hazelnut (F17) IgE Class 0; Hickory/Pecan IgE <0.10 kU/L; Hickory/Pecan IgE Class 0; Immunoglobulin E 9 kU/L (<OR=114); Macadamia Nut (rf345) <0.10 kU/L; Macadamia Nut (rf345) Class 0; Maple Box Elder IgE Class 0; Mountain Cedar IgE <0.10 kU/L; Mountain Cedar IgE Class 0; Mouse Urine Proteins IgE <0.10 kU/L; Mouse Urine Proteins IgE Class 0; Oak IgE <0.10 kU/L; Peanut (F13) IgE 0.77 kU/L; Peanut (F13) IgE Class 2; Peniciliium notatum class 0; Penicillium notatum (M1) IgE <0.10 kU/L; Rough Marsh <0.10 kU/L; Rough Marsh Elder Class 0; Rough Pigweed (W14) IgE <0.10 kU/L; Rough Pigweed (W14) IgE Class 0; Russian Thistle <0.10 kU/L; Salmon (F41) IgE <0.10 kU/L; Salmon (F41) IgE Class 0; Scallop (F338) IgE <0.10 kU/L; Scallop (F338) IgE Class 0; Sesame Seed <0.10 kU/L; Shrimp (F24) IgE <0.10 kU/L; Soybean (F14) IgE <0.10 kU/L; Soybean (F14) IgE Class 0; Sycamore IgE <0.10 kU/L; Sycamore IgE Class 0; Timothy Grass IgE <0.10 kU/L; Timothy Grass IgE Class 0; Tuna (F40) <0.10 kU/L; Tuna (F40) Class 0; Walnut (F256) IgE 0.34 kU/L; Walnut (F256) IgE Class 0/1; Walnut Tree IgE <0.10 kU/L; Walnut Tree IgE Class 0; Wheat (F4) IgE <0.10 kU/L; Wheat (F4) IgE Class 0; White Ash IgE Class 0; White Mulberry IgE <0.10 kU/L; White Mulberry IgE Class 0
== END 2024-08-25 13:42 | disposition home or self-care (01) ==
LOC: ANHGOSHLAB 13:42
PROVIDERS: PCP Family Medicine; Visit Provider Otolaryngology Otolaryngology/Facial Plastic Surgery
DX: J30.89 Other allergic rhinitis (principal)
CPT/HCPCS: 36415; 82785; 86003

== ENCOUNTER 2024-09-29 14:31 | Outpatient (CLI) | payer MEDICARE, SELFPAY ==
--- NOTE | ~2024-09-29 | MM_ITS ---
EXAMINATION: MM screening олег BI w noemi HISTORY: Screening TECHNIQUE: Craniocaudal and mediolateral oblique 3-D tomosynthesis images were obtained and synthetic 2-D images were generated. CAD analysis was submitted and interpreted. COMPARISON: Comparison to multiple prior studies sequentially, with oldest reviewed study dated 01/21. BREAST PARENCHYMAL COMPOSITION: Not Dense: The breasts are almost entirely fatty. FINDINGS: There is no evidence of suspicious mass, calcification, or architectural distortion to sugg est malignancy in either breast. There has been no suspicious interval change. IMPRESSION: 1. No mammographic evidence of malignancy. 2. Recommend routine screening mammography in one year. BI-RADS Category 1: Negative Reviewed, dictated and finalized at location []
--- OUTSIDE RECORDS SUMMARY | 2024-09-29 14:35 | XMS_ITS | Clinical Summary ---
Author Organization [facility] Administrative Offices Address [address] [place] [address] Care Team Providers Care Shot Blaster Name Role Phone Rony Tucker MD Primary Care Provider [phone] Allergies Active Allergy Reactions Criticality Noted Date [...] 2004 OSTEOPOROSIS SCREENING 2019 INFLUENZA VACCINE (#1) 2024 RSV VACCINE (60+ or ) (1 - 1-dose 75+ series) 2029 [place] [address] [facility] [employer] ACCESS CHOICE Care Teams Shot Blaster Relationship Specialty Start Date End Date Rony Tucker MD [address] [place] [phone] PCP - General Family Practice 07/06/18
--- OUTSIDE RECORDS SUMMARY | 2024-09-29 14:35 | XMS_ITS | Clinical Summary ---
Author Organization [facility] Address [address] [address] Phone Care Team Providers Care Orientation & Mobility Specialist Name Role Phone Rony Tucker MD Primary [...] complete this topic Insurance MEDICARE Care Teams Orientation & Mobility Specialist Relationship Specialty Start Date End Date Rony Tucker MD [address] [place] [address] PCP - General Family Medicine 01/26/20
--- OUTSIDE RECORDS SUMMARY | 2024-09-29 14:35 | XMS_ITS | Continuity of Care Document ---
Author Organization [facility] Address [address] [facility] [address] [place] [address] Phone Care Team Providers Care Livestock Rancher Name Role Phone Homer Parry MD Unavailable [...] - Active Procedures Procedure Date OFFICE/OUTPATIENT VISIT [facility] Advance Directives Directive Yes / No Effective Date File Name No Information Encounters Encounter Description Practice Location Reason(s) For Visit Diagnoses Date Provider Providers Copied on Encounter OFFICE/OUTPA TIENT VISIT [facility], [address] [facility] [address] [address], [place], [address], tel:[phone] [facility] Body mass index (BMI) 30.0-30.9, adultTrigger ring finger of right handRight hand weaknessCervica l radiculopathy at C8 7-201 9 Brinda Coronel. [address] [place], [place], [id number] . tel:[phone] Referring Provider: Manjeet Paez, [address], [place], [address] . tel:[phone] Family History Family Member Type Diagnosis Age At Onset Mother Problem (finding) Alive and well Immunizations Vaccine Date Status Comments Pneumo (2 yrs or older)(PPV) administered Source: Other Provider Payers Payer name Insurance type Covered alliance party ID Authornestor swain(s) Blue Access Choice PPO E2 OT [id number] Social History Type Description Quantity Date Captured [...]
== END 2024-09-29 14:32 | disposition home or self-care (01) ==
LOC: ANHIMG 14:33
PROVIDERS: PCP Family Medicine; Visit Provider Family Medicine
DX: Z12.31 Encounter for screening mammogram for malignant neoplasm of breast (principal)
CPT/HCPCS: 77063; 77067

== ENCOUNTER 2024-10-26 08:23 | Outpatient (CLI) | payer MEDICARE, SELFPAY ==
--- OUTSIDE RECORDS SUMMARY | 2024-10-26 08:32 | XMS_ITS | Clinical Summary ---
Author Organization [facility] Administrative Offices Address [address] [place] [address] Care Team Providers Care Opener Name Role Phone Rony Tucker MD Primary Care Provider [phone] Allergies Active Allergy Reactions Criticality Noted Date [...] - 1-dose 75+ series) 20[address] [place] [address] [facility] [employer] ACCESS CHOICE Care Teams Opener Relationship Specialty Start Date End Date Rony Tucker MD [address] [place] [phone] PCP - General Family Practice 07/06/18
--- OUTSIDE RECORDS SUMMARY | 2024-10-26 08:32 | XMS_ITS | Clinical Summary ---
Author Organization [facility] Address [address] [address] Phone Care Team Providers Care Oil Bay Technician Name Role Phone Rony Tucker MD Primary Care Provider [phone] Social History Tobacco Use Types Packs/Day Years Used Date Smoking Tobacco: Never Assessed Comments Unknown Sex and Gender Information Value Date Recorded Sex Assigned at Not on file Legal Sex Female 12:42 AM CDT Gender Identity Not on file Sexual Orientation Not on file Plan of Treatment Health Maintenance Due Date Last Done Comments Hepatitis C Virus (HCV) Screening 1955 TdaP Immunization 1954 Cologuard 1999 Colonoscopy 1999 Colorectal Cancer Screening 1999 Immunochemical Fecal Occult Blood 1999 Pneumococcal Immunization (5 0+ years) (1 of 1 - PCV) 2004 Zoster Immunization (1 of 2) 2004 SARS-COV-2 Immunization (1 - 2023- season) 2023 Influenza Immunization (#1) 2024 Respiratory Syncytial Virus (RSV) Immunization (Adult) (1 - 1-dose 75+ series) 2029 Hepatitis B Immunization Aged Out No longer eligible based on patient's age to complete this topic Human Papillomavirus (HPV) Immunization Aged Out No longer eligible b ased on patient's age to complete this topic Meningococcal Immunization (ACWY) Aged Out No longer eligible based on patient's age to complete this topic Rotavirus Immunization Aged Out No lo nger eligible based on patient's age to complete this topic Insurance MEDICARE Care Teams Oil Bay Technician Relationship Specialty Start Date End Date Rony Tucker MD [address] [place] [address] PCP - General Family Medicine 01/26/20
[2024-10-26 13:45] LABS: Hemoglobin A1C 6.3 % (<5.7)
== END 2024-10-26 08:24 | disposition home or self-care (01) ==
LOC: ANHGOSHLAB 08:24
PROVIDERS: PCP Family Medicine; Visit Provider Student in an Organized Health Care Education/Training Program
DX: R73.03 Prediabetes (principal)
CPT/HCPCS: 36415; 83036

== ENCOUNTER 2024-11-16 07:51 | Outpatient (CLI) | payer MEDICARE, SELFPAY ==
--- OUTSIDE RECORDS SUMMARY | 2018-08-26 04:35 | XMS_ITS | Continuity of Care Document ---
Author Organization [facility] Address [address] [facility] [place] [address] Phone Care Team Providers Care Preventative Maintenance Technician Name Role Phone Homer Parry MD Unavailable Unavailable Allergies, Adverse Reactions, Alerts Substance Reaction Status Criticality doxycycline Active No Information Medications Medication Instructions Dosage Effective Dates (start - stop) Status Comments niacin 500 mg tablet take 1 tablet by or al route 4 times every day 500 MG - Active B12 5,000 mcg-100 mcg sublingual lozenge - Active potassium 99 mg tablet - Active Procedures Procedure Date OFFICE/OUTPATIENT VISIT [facility] Advance Directives Directive Yes / No Effective Date File Name No Information Encounters Encounter Description Practice Location Reason(s) For Visit Diagnoses Date Provider Providers Copied on Encounter OFFICE/OUTPA TIENT VISIT [facility], [address], [place], [address], tel:[phone] [facility] Body mass index (BMI) 30.0-30.9, adultTrigger ring finger of right handRight hand weaknessCervica l radiculopathy at C8 7-201 9 Brinda Coronel. [address] [place], [place], [id number] . tel:[phone] Referring Provider: Manjeet Paez, [address] [facility] [address], [place], [address] . tel:[phone] Family History Family Member Type Diagnosis Age At Onset Mother Problem (finding) Alive and well Immunizations Vaccine Date Status Comments Pneumo (2 yrs or older)(PPV) administered Source: Other Provider Payers Payer name Insurance type Covered republican ID Authornestor swain(s) Blue Access Choice PPO E2 OT [id number] Social History Type Description Quantity Date Captured Comments Alcohol Use Details Unknown Caffeine Use Details Unknown Tobacco Use Status Ex-cigarette smoker 019 Smoking Status Former smoker Smoking Tobacco Use Details Cigarette: Age Stopped: 37, Years Used 5 Cigarette: 0.5 Packs per day, Pack Year: 2.5 Sex Female Vital Signs Date / Time: Height Weight BMI Pulse Rate Blood Pressure Temperature Respiratory Rate Body Surface Area Head Circumference Head Circ. Percentile Wt./Cliff. Percentile BMI percentile Pulse Ox Inhaled Ox 9:48 AM 62.00 in 76.204 kg (168.00 lbs) 30.7 3 kg/m eter (2) Chief Complaint And Reason For Visit No Information Reason For Referral Reason For Referral No Information Plan Of Treatment Date Type Action Status Referral Ordered: RADEX HAND MINIMUM 3 VIEWS RT ordered History Of Present Illness Encounter Date Complaint History Of Prese nt Illness No Information Functional Status Date Functional Assessmen t No Information Instructions Date Instruction Additional Infor mation Fall risk home exerc ise program handout provided Home safety checklis t for fall hazards provided Giving encouragement to exercise Related to Body mass index (BMI) 30.0-30.9, adult Assessments Type Assessment Date assessment Body mass index (BMI) 30.0-30.9, adult assessment Trigger ring finger of right sim d assessment Right hand weakness assessment Cervical radiculopathy at C8 Aug Patient Care Teams Name Effective Dates (start - stop) Status Members No Information
--- OUTSIDE RECORDS SUMMARY | 2024-11-16 07:54 | XMS_ITS | Clinical Summary ---
Author Organization [facility] Administrative Offices Address [address] [place] [address] Care Team Providers Care Security Operations Analyst Name Role Phone Rony Tucker MD Primary Care Provider [phone] Allergies Active Allergy Reactions Criticality Noted Date [...] - 1-dose 75+ series) [address] [place] [address] [facility] [employer] ACCESS CHOICE Care Teams Security Operations Analyst Relationship Specialty Start Date End Date Rony Tucker MD [address] [place] [phone] PCP - General Family Practice 07/06/18
--- OUTSIDE RECORDS SUMMARY | 2024-11-16 07:54 | XMS_ITS | Clinical Summary ---
Author Organization [facility] Address [address] [address] Phone Care Team Providers Care Tobacco Sample Puller Name Role Phone Rony Tucker MD Primary [...] complete this topic Insurance MEDICARE Care Teams Tobacco Sample Puller Relationship Specialty Start Date End Date Rony Tucker MD [address] [place] [place] [address] PCP - General Family Medicine 01/26/20
== END 2024-11-16 07:52 | disposition home or self-care (01) ==
LOC: ANHAUDASC 07:51
PROVIDERS: PCP Family Medicine; Visit Provider Family Medicine
DX: G47.30 Sleep apnea, unspecified (principal); Z71.9 Counseling, unspecified; L57.0 Actinic keratosis; H90.3 Sensorineural hearing loss, bilateral
CPT/HCPCS: 92557; 92567

== ENCOUNTER 2024-11-21 08:29 | Outpatient (CLI) | payer MEDICARE, SELFPAY ==
--- OUTSIDE RECORDS SUMMARY | 2024-11-21 08:33 | XMS_ITS | Clinical Summary ---
Author Organization [facility] Administrative Offices Address [address] [place] [address] Care Team Providers Care Manual Lathe Operator Name Role Phone Rony Tucker MD Primary Care Provider [phone] Allergies Active Allergy Reactions Criticality Noted Date [...] - 1-dose 75+ series) 20[address] [place] [address] [facility] [employer] ACCESS CHOICE Care Teams Manual Lathe Operator Relationship Specialty Start Date End Date Rony Tucker MD [address] [place] [phone] PCP - General Family Practice 07/06/18
--- OUTSIDE RECORDS SUMMARY | 2024-11-21 08:33 | XMS_ITS | Clinical Summary ---
Author Organization [facility] Address [address] [address] Phone Care Team Providers Care Nocturnist Physician Name Role Phone Rony Tucker MD Primary [...] complete this topic Insurance MEDICARE Care Teams Nocturnist Physician Relationship Specialty Start Date End Date Rony Tucker MD [address] [place] [address] PCP - General Family Medicine 01/26/20
--- NOTE | 2024-12-13 14:33 | WPDHOMESLEEP ---
Sleep Study - Home Unattended Date of Study: 11/21/24 Ordering Provider: Shirley Deleon MD Interpreting Provider: Belkys Prieto MD Home Sleep Study Type: Watch PAT Height: 1.53 m Weight: 79.832 kg Body Mass Index: 34.0 Neck Circumference (inches): 14.5 [place]: 0 Reason for Sleep Study History of obstructive sleep apnea; she stopped using CPAP June 2024 with sinus surgery, wanted testing to see if sleep apnea was still present. Sleep History Beatriz Rosa is a 69-year-old female with obstructive sleep apnea who had sinus surgery in June 2024. She stopped using CPAP at the time of surgery, want to see if she still has apnea. she does have difficulty sleeping and averages only 5-1/2 hours of sleep at night causing her to be tired during the day. She frequently awakens from sleep short of breath, and this just started again recently. She rarely wakes at night with heartburn, belching or coughing.??She frequently snores, occasionally snores loudly enough that others complain. She frequently has trouble sleeping when she has a cold. She occasionally wakes up gasping for breath during the night. She very rarely has breathing problems at night witnessed by others. She occasionally sweats excessively at night. She never notices her heart pounding or beating irregularly during the night. She never falls asleep during the day. She never falls asleep involuntarily, never falls asleep while driving. She never experiences loss of muscle tone with strong emotion. She never feels paralyzed on waking or falling asleep. She frequently experiences vivid dreams upon waking or falling asleep. She never feels afraid of going to sleep. She never has nightmares. She occasionally recalls her dreams. She constantly has thoughts racing through her mind. She rarely feels sad, depressed or anxious. She rarely notices parts of her body jerk. She never kicks during the night. She rarely feels crawling or aching feelings in her legs. She occasionally, sometimes frequently feels leg pain at night, feels like neuropathy. She never has morning jaw pain, and rarely grinds her teeth at night. She rarely feels bothered by pain during the day, is never awakened by pain during the night. She occasionally wakes up feeling stiff in the morning, occasionally wakes feeling sore or achy in the morning. She occasionally awakens with pain in her neck, spine, or joints. She has fatigue, memory problems, concentration difficulties and insomnia. Normal bedtime is 11:00 p.m., falling asleep within 20 minutes but sometimes taking up to 3 hours to fall asleep. she wakes between 2 and 3 times during the night, sometimes gets up out of bed, may read, get on the computer or do paperwork. These nighttime awakenings may last 15 minutes or may last 1-2 hours. These awakenings occur soon after falling asleep and in the digital product manager hours. She reports getting fewer than 5 hours of sleep at night. If she is very tired and only get 4 hours of sleep, she will definitely feel tired in the afternoon Habits:??Tobacco: former smoker quit 30+ years ago Caffeine: 2 diet [employer] daily . Alcohol: 1 or 2 per month Recreational substances: none PMFSH Past Medical History Medical History Sleep-disordered breathing Encounter for postoperative care Postoperative pain Chronic rhinitis Sinus headache Nasal congestion COVID-19 Limping Former smoker three years Trochanteric bursitis, right hip Torn ligament Broken ankle Obstructive sleep apnea Surgical History Surgical History H/O section Hx of breast reduction, elective Family History Family History Father Diabetes mellitus, Onset Age: 47 Hypertension, Onset Age: 47 Grandparent Diabetes mellitus Mother Diabetes mellitus Hypertension Sibling Hypertension Social History Social History Social History: Caffeine-soda Smoking packs per day: 0.5 Smoking cigarettes per day: 10.0 Years smoked: 3 Smoking pack-years: 1.50 Smoking status: Former smoker Tobacco type: cigarettes Smoking end date: 03/22/79 Alcohol intake: current Drinks per week: 1 Alcohol use details: beer, bourbon occasionally Substance use: never Substance use type: does not use Do You Feel Safe in your Home?: Yes Lack of Transportation: No Lack of Food: Never True Current Housing: I Have Housing Concerned About Future Housing: No Difficulty Paying Gas/Electric Bills: No Difficulty Paying for Meds: No Currently Unemployed: No Living arrangements: with family Spiritual care concerns: No Medications Home Medications ?Medication ?Instructions ?Recorded ?Confirmed ?Type sodium bicarbonate-sodium chloride 1 packet .Route DAILY 06/02/24 11/06/24 History packet for sinus irrigation (NeProfexmed Pediatric Sinus Rinse Refill packet) cholecalciferol (vitamin D3) 50 50 mcg PO DAILY 06/29/24 11/06/24 History mcg (2,000 unit) capsule coQ10 (ubiquinol) 200 mg capsule 200 mg PO DAILY 06/29/24 11/06/24 History cyanocobalamin (vitamin B-12) 1,000 mcg PO DAILY 06/29/24 11/06/24 History 1,000 mcg capsule xbfkwlgyasfg-Tx-xyfk-minerals 18 1 tablet PO DAILY 06/29/24 11/06/24 History mg-0.4 mg tablet turmeric 400 mg capsule 400 mg PO DAILY 06/29/24 11/06/24 History vit C 30 mg-s.strauss 250 mg-celery 1 cap PO DAILY 06/29/24 11/06/24 History seed 75 mg-grape seed extrt capsule (Tart Strauss) montelukast 10 mg tablet 10 mg PO QHS #90 tabs 09/14/24 11/06/24 Rx fluoride (sodium) 1.1 % dental dental 11/01/24 11/06/24 History paste (PreviDent 5000 Booster Plus) azelastine 137 mcg (0.1 %) nasal 1 spray intranasal Q12H 30 days 11/06/24 11/06/24 Rx spray #30 mL Sleep Procedure The sleep study was completed using [employer] a technically adequate device with seven channels: peripheral arterial tone, actigraphy, body position, snore, respiratory movement, pulse oximetry, sleep staging, and heart rate. Prior to using the device, the patient received verbal and written instructions for its application and was provided with the help desk phone number for additional telephonic instruction with 24-hour availability of qualified personnel to answer questions. Sleep Architecture The total recording time is 7 hrs, 49 min. The total sleep time is 6 hrs, 54 min. Sleep latency is 10 minutes. REM latency is 125 minutes. The patient had 9 episodes of waking. Sleep architecture shows 24.0% deep sleep, 49.9% light sleep, and 26.1% stage REM. The patient spent 28.6% of total sleep time in the supine position. Sleep efficiency was 88%. Respiratory Analysis The overall AHI (pAHI 3%:) is 28.3. The apnea hypopnea index using 4% criteria is 19.9 events per hour. The central AHI is 1.2. The AHI was 22.5 in NREM and 42.4 in REM sleep. The AHI was 54.3 in Supine and 22.2 in Non-supine sleep. Percent of Gilbert Yeung respirations is 0.0. Oximetry Data The oxygen desaturation index (REBECCA 4%:) is 16.8. The mean saturation is 91%, and the lowest saturation is 78%. Time spent with saturation < 88% is 25.4 minutes. Snoring Profile Snoring average intensity is 44 dB. The patient snored above 45 decibels for 119.2 minutes, 28.8% of sleep time. Cardiac Profile The average pulse rate is 75 beats per minutes. The lowest pulse rate is 58 bpm. The highest pulse rate is 111 bpm. Cardiac Rhythm Analysis in Sleep does not detect atrial fibrillation. Assessment and Plan Assessment and Plan (1) Obstructive sleep apnea: Code(s): G47.33 - Obstructive sleep apnea (adult) (pediatric) Status: Acute Assessment and Plan: This home sleep test using WatchPat on 11/21/2024 shows moderate obstructive sleep apnea, the apnea-hypopnea index with 4% criteria is 19.9, desaturation to 78% and 25.4 minutes spent below 88%, 6.1% of the study. The central apnea-hypopnea index is 1.2, very low, within the normal range. There was no evidence of Gilbert-Yeung respiration. The supine AHI is 54.3, much higher than in the non-supine position. The patient currently has a CPAP machine at home. The setting is not known. If the machine is more than 5 years old it needs to be replaced. If replacement is required, she should be prescribed a Resmed AirSense 11 AutoPAP 5-15 cm H2O, CPAP mask/filters/tubing and humidifier chamber. This should be used with all episodes of sleep. Compliance should be reviewed within 31-90 days of starting therapy for usage greater than 4 hours per night greater than 70% of the nights. The patient should be asked about symptoms such as excessive daytime sleepiness, quality of sleep, decreased nocturia, increased mental functioning such as memory, mood, and concentration. If her current machine is less than 5 years old, she should start using it again. If she does not have refreshing sleep. consider CPAP titration in the sleep lab with a sleep aid to use, if needed, to get to sleep and stay asleep during the titration. The patient should not nap on the day of the CPAP titration. This will make the titration much more difficult. BMI is 34.1. Weight management is advised. Clinical data suggests that weight loss of 10% can reduce the severity of respiratory events and snoring and improve AHI by as much as 25%. Sleep hygiene measures are recommended. She wakes during the night, and she may watch television or use a computer which will prolonged her wakefulness. Recommendations to improve sleep quality include: ? Practice a bedtime routine and keep the same sleep schedule including bedtime and wake up time, even on the weekends. Consistency makes it much easier to fall asleep and wake easily. ? If you have trouble sleeping at night, avoid naps, especially in the late afternoon. However, short naps lasting approximately 20 minutes can help alleviate daytime fatigue, sleepiness, and even provide cognitive benefit. Naps longer than 30 minutes can cause sleep inertia, a period of reduced alertness and cognitive performance after waking. ? Exercise daily. ? Maintain a sleep environment conducive to sleep. The bedroom should be comfortably cool. In population studies, nocturnal environmental light and noise significantly impact sleep quality and quantity. Use of blackout curtains, ear plugs, or sound machines may help promote an optimal sleep environment for individuals with sleep disruptions due to environmental stimuli. ? Sleep on a comfortable mattress and pillows. ? Regular bright light exposure in the mornings may help to maximize alertness and maintain a regular circadian rhythm. Studies in extreme latitudes where sunlight is minimal in the winter have found that an hour of exposure to white light in the morning helped subjects go to sleep earlier and wake earlier. Exposure to blue light in the morning may have more robust effects on the stability of the circadian rhythm and has been shown to improve daytime fatigue and sleepiness. ? Avoid cigarettes, caffeine, and heavy meals in the evening. While alcohol use does seem to reduce the time it takes to fall asleep, studies have reported that evening alcohol intake can cause more waking time or light sleep in the second half of the night and reduce self-reported sleep quality. Evening nicotine is associated with lower sleep efficiency and more awake time during the night. ? Wind down with quiet activities that may promote sleep, such as reading with a dim light. Avoid use of electronics at least 30 minutes before habitual bedtime and in the middle of the night if nocturnal awakenings occur. The blue light emitted from computer screens and hand-held devices can suppress natural melatonin production, resulting in difficulty falling asleep; however, the exact duration of use and intensity of lighting that cause this effect are variable in the literature. ? If you cannot sleep, do not look at a clock. Go into another room and do something relaxing until you feel drowsy enough to fall asleep again. Then return to bed. Data The data obtained during this sleep study is adequate for interpretation. Certification This sleep study has been reviewed by a board certified sleep medicine physician.
[2024-12-13 15:17] VITALS: BMI 34.0
== END 2024-11-22 13:14 | disposition home or self-care (01) ==
LOC: ANHCSM 08:30
PROVIDERS: PCP Family Medicine; Visit Provider Family Medicine
DX: G47.30 Sleep apnea, unspecified (principal); G47.33 Obstructive sleep apnea (adult) (pediatric)
CPT/HCPCS: 95800